=== PATIENT | male | born 1935 | race Asian ===

== ENCOUNTER 2017-09-01 15:27 | Emergency (ER) | payer BC ==
[2017-09-01 15:40] VITALS: BP 178/88
--- NOTE | 2017-09-01 19:03 | UC ---
Thuan Mc Elizabeth, scribed for George Slater MD on 09/01/17 at 1603 . Complaint Male HPI - HPI Summary HPI Summary: This patient is an 82 year old M presenting to [facility] with a chief complaint of hematuria since this morning. The patient rates the pain 0/10 in severity. Symptoms aggravated by nothing. Symptoms alleviated by nothing. Patient denies any increased frequency, urgency, dysuria, fever, chills, back pain, abd pain, and pelvic pain. The patient has a hx of BPH and takes Flomax. The patient denies taking any blood thinners or ASA - History of Current Complaint Chief Complaint: UCGU Stated Complaint: BLOOD IN URINE Time Seen by Provider: 09/01/17 15:39 Hx Obtained From: Patient Onset/Duration: Sudden Onset, Lasting Hours - since this morning, Still Present Timing: Intermittent Severity Initially: Mild Severity Currently: Mild Pain Intensity: 0 Pain Scale Used: 0-10 Numeric Aggravating Factor(s): Nothing Alleviating Factor(s): Nothing Associated Signs And Symptoms: Positive: Hematuria. Negative: Back Pain, Fever , Dysuria - Allergies/Home Medications Allergies/Adverse Reactions: Allergies Allergy/AdvReac Type Severity Reaction Status Date / Time SEASONAL HAYFEVER Allergy ITCHY Uncoded 09/01/17 15:35 WATERY EYES PMH/Surg Hx/FS Hx/Imm Hx Other GI/ History: BPH - Surgical History Surgical History: Yes Surgery Procedure, Year, and Place: 1955 EXCISION OF RIB DUE TO TB, [place] 1989' HEMORRHOIDECTOMY, [facility]- GALLBLADDER REMOVED- [facility]. R inguinal hernia repair 2014 - Family History Known Family History: Positive: Other - liver CA - Social History Alcohol Use: None Alcohol Amount: 1 PER WEEK Substance Use Type: None Smoking Status (MU): Former Smoker Type: Cigarettes Amount Used/How Often: LESS THAN 1 PPD Have You Smoked in the Last Year: No When Did the Patient Quit Smoking/Using Tobacco: 1960 Review of Systems Constitutional: Negative - NEGATIVE FEVER, NEGATIVE CHILLS Gastrointestinal: Negative - NEGATIVE ABD PAIN Genitourinary: Negative - NEGATIVE FREQUENCY, NEGATIVE URGENCY, NEGATIVE DYSURIA , Hematuria Musculoskeletal: Negative - NEGATIVE BACK PAIN, NEGATIVE PELVIC PAIN All Other Systems Reviewed And Are Negative: Yes Physical Exam - Summary Physical Exam Summary: VITAL SIGNS: Reviewed. GENERAL: Patient is a well-developed and nourished MALE who is lying comfortable in the stretcher. Patient is not in any acute respiratory distress. HEAD AND FACE: Normocephalic EYES: PERRLA, EOMI x 2. EARS: Hearing grossly intact. MOUTH: Oropharynx within normal limits. NECK: Supple, trachea is midline, no adenopathy, no JVD, no carotid bruit. CHEST: Symmetric, no tenderness at palpation LUNGS: Clear to auscultation bilaterally. No wheezing or crackles. CVS: Regular rate and rhythm, S1 and S2 present, no murmurs or gallops appreciated. ABDOMEN: Soft, non-tender. Bowel sounds are normal. No abdominal abnormal pulsations. EXTREMITIES: Full ROM in all major joints, no edema, no cyanosis or clubbing. NEURO: Alert and oriented x 3. No acute neurological deficits. Speech is normal and follows commands. SKIN: Dry and warm Triage Information Reviewed: Yes Vital Signs: Initial Vital Signs Temp 99.2 F 09/01/17 15:36 Pulse 56 09/01/17 15:36 Resp 18 09/01/17 15:36 BP 178/88 09/01/17 15:36 Pulse Ox 98 09/01/17 15:36 Vital Signs Reviewed: Yes Complaint Male Course/Dx - Course Course Of Treatment: Patient is an 82-year-old male who presents to the urgent With painless hematuria. Urinalysis is negative for UTI. Patient will be transferred to the emergency department for further workup and management. Patient declined to transportation via ambulance. He reports that he is going to drink himself to the emergency department. He is hemodynamically stable and alert and oriented 3. - Differential Dx/Diagnosis Provider Diagnoses: Painless hematuria Discharge - Sign-Out/Discharge Documenting (check all that apply): Discharge/Admit/Transfer - Discharge Plan Condition: Stable Disposition: HOME Patient Education Materials: Hematuria (ED) Referrals: No Primary Care Phys,NOPCP [Primary Care Provider] - Additional Instructions: Patient will be transferred to the emergency department for further assessment. Patient declined ambulance transfer. - Billing Disposition and Condition Condition: STABLE Disposition: HOME The documentation as recorded by the Thuan andrade Elizabeth accurately reflects the service I personally performed and the decisions made by , George Slater MD.
--- NOTE | 2017-09-02 16:03 | UC ---
- Progress Note Progress Note: Pt urine culture prelim returned with >100,000 Enterococcus Faecalis. Does not appear he was placed on anbx at or at the ED. U/s revealed bladder mass and advised to f/u with Urology. Please call pt and have him start Bactrim DS BID for 5 days. KEEP F/U WITH UROLOGY. --- We will call him if we need to change his antibiotic after final culture results. Discharge - Sign-Out/Discharge Documenting (check all that apply): Post-Discharge Follow Up - Discharge Plan Condition: Stable Disposition: HOME Prescriptions: Sulfamethox/Trimethoprim DS* [Bactrim DS 800/160 TAB*] 1 tab PO BID #10 tab Patient Education Materials: Hematuria (ED) Referrals: No Primary Care Phys,NOPCP [Primary Care Provider] - Additional Instructions: Patient will be transferred to the emergency department for further assessment. Patient declined ambulance transfer. - Billing Disposition and Condition Condition: STABLE Disposition: HOME
--- NOTE | 2017-09-03 16:26 | UC ---
- Progress Note Progress Note: call patient assure he is improving, if not please go to ED also assure he has a follow up appointment with urology Discharge - Sign-Out/Discharge Documenting (check all that apply): Post-Discharge Follow Up - Discharge Plan Condition: Stable Disposition: HOME Prescriptions: Sulfamethox/Trimethoprim DS* [Bactrim DS 800/160 TAB*] 1 tab PO BID #10 tab Patient Education Materials: Hematuria (ED) Referrals: No Primary Care Phys,NOPCP [Primary Care Provider] - Additional Instructions: Patient will be transferred to the emergency department for further assessment. Patient declined ambulance transfer. - Billing Disposition and Condition Condition: STABLE Disposition: HOME
== END 2017-09-01 16:05 | disposition home or self-care (01) ==
LOC: UCEAST 15:27
DX: R31.9 Hematuria, unspecified (principal); N40.0 Benign prostatic hyperplasia without lower urinary tract symptoms; Z87.891 Personal history of nicotine dependence; Z80.0 Family history of malignant neoplasm of digestive organs
CPT/HCPCS: 81003; 87077; 87086; 87186; 99202; G0463

== ENCOUNTER 2017-09-01 16:37 | Emergency (ER) | payer BC ==
[2017-09-01 18:49] LABS: Urine Appearance Cloudy; Urine Color Red; Urine Specific Gravity 1.009 (1.010-1.030)
--- NOTE | 2017-09-01 18:54 | ED ---
GI/ HPI - HPI Summary HPI Summary: Complains of persistent blood in urine starting today. Patient states blood is throughout urine flow. Sent from urgent care to ED for further evaluation. Denies any pain, fever, CP, SOB, weakness, fatigue, N/V, abdominal pain, back pain, penile discharge. History of mild bleeding in urine 2 months ago which went away with antibiotics. Patient also denies pain at that time. Medical history is enlarged prostate, seasonal allergies. - History of Current Complaint Chief Complaint: EDUrogenitalProblems Time Seen by Provider: 09/01/17 18:35 Stated Complaint: BLOOD IN URINE Hx Obtained From: Patient Pain Intensity: 0 - Allergy/Home Medications Allergies/Adverse Reactions: Allergies Allergy/AdvReac Type Severity Reaction Status Date / Time SEASONAL HAYFEVER Allergy ITCHY Uncoded 09/01/17 15:35 WATERY EYES Home Medications: Home Medications Finasteride [Proscar] 5 mg PO DAILY 09/01/17 [History Confirmed 09/01/17] PMH/Surg Hx/FS Hx/Imm Hx Cardiovascular History: Denies: Other Cardiovascular Problems/Disorders Respiratory History: Reports: Other Respiratory Problems/Disorders - 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 [place]/2014- GALLBLADDER REMOVED- [facility] [place]. R inguinal hernia repair 2014 Hx Anesthesia Reactions: No Infectious Disease History: No Infectious Disease History: Reports: Hx Hepatitis - HX OF HEPATITIS C Denies: Traveled Outside the [place] in Last 30 Days - Social History Alcohol Use: Rare Alcohol Amount: 1 PER WEEK Substance Use Type: Reports: None Smoking Status (MU): Former Smoker Type: Cigarettes Amount Used/How Often: LESS THAN 1 PPD Have You Smoked in the Last Year: No Review of Systems Constitutional: Negative Eyes: Negative ENT: Negative Cardiovascular: Negative Respiratory: Negative Gastrointestinal: Negative Positive: hematuria Musculoskeletal: Negative Skin: Negative Neurological: Negative Psychological: Normal All Other Systems Reviewed And Are Negative: Yes Physical Exam Triage Information Reviewed: Yes Vital Signs On Initial Exam: Initial Vitals Temp Pulse Resp BP Pulse Ox 98.4 F 52 18 174/89 96 09/01/17 17:05 09/01/17 17:05 09/01/17 17:05 09/01/17 17:05 09/01/17 17:05 Vital Signs Reviewed: Yes Appearance: Positive: Well-Appearing Skin: Positive: Warm Head/Face: Positive: Normal Head/Face Inspection Eyes: Positive: Normal Neck: Positive: Supple Respiratory/Lung Sounds: Positive: Clear to Auscultation Cardiovascular: Positive: Normal Abdomen Description: Positive: Nontender Musculoskeletal: Positive: Normal Neurological: Positive: Normal Psychiatric: Positive: Normal AVPU Assessment: Alert - [place] Coma Scale Best Eye Response: 4 - Spontaneous Best Motor Response: 6 - Obeys Commands Best Verbal Response: 5 - Oriented Coma Scale Total: 15 Diagnostics - Vital Signs Vital Signs Temp Pulse Resp BP Pulse Ox 09/01/17 17:05 98.4 F 52 18 174/89 96 - Laboratory Result Diagrams: 09/01/17 18:50 09/01/17 18:50 Lab Statement: Any lab studies that have been ordered have been reviewed, and results considered in the medical decision making process. - Ultrasound No standard instances Ultrasound Interpretation: Positive (See Comments) - Lobular mass extending from the left of the midline posterior wall of the urinary bladder. Direct visualization and tissue sampling is advised. Ultrasound Interpretation Completed By: Radiologist BRUNA Course/Dx - Course Course Of Treatment: Complains of persistent blood in urine starting today. Patient states blood is throughout urine flow. Sent from urgent care to ED for further evaluation. Denies any pain, fever, CP, SOB, weakness, fatigue, N/V, abdominal pain, back pain, penile discharge. History of mild bleeding in urine 2 months ago which went away with antibiotics. Patient also denies pain at that time. Medical history is enlarged prostate, seasonal allergies. Elevated blood pressure with no history of hypertension. Asymptomatic. Follow- up with primary care. Elevated liver enzymes, patient states he has history of hep C. Hemoglobin within normal limits. Ultrasound positive for lobular mass extending from the left of the midline posterior wall of the urinary bladder. Direct visualization and tissue sampling is advised. Recommended follow-up with urology. - Diagnoses Provider Diagnoses: Hematuria Discharge - Sign-Out/Discharge Documenting (check all that apply): Discharge/Admit/Transfer - Discharge Plan Condition: Stable Disposition: HOME Patient Education Materials: Hematuria (ED) Referrals: No Primary Care Phys,NOPCP [Primary Care Provider] - Dion Galdamez MD [Medical Doctor] - Additional Instructions: Follow-up with urology Dr. Galdamez for further evaluation of mass found on bladder. Return to the ED for any new or worsening symptoms - Billing Disposition and Condition Condition: STABLE Disposition: HOME
[2017-09-01 19:00] LABS: ABS Basophils 0 10^3/ul (0-0.2); ABS Eosinophils 0 10^3/ul (0-0.6); ABS Lymphocytes 1.4 10^3/ul (1.0-4.8); ABS Monocytes 0.6 10^3/ul (0-0.8); ABS Neutrophils 3.5 10^3/ul (1.5-7.7); ABS Nucleated RBC 0 10^3/ul; Eosinophil % 0.7 % (0-6); Hematocrit 44 % (42-52); Lymphocyte % 24.7 % (25-47); Mean Corpuscular HGB Conc 34 g/dl (31-36); Mean Corpuscular Hemoglobin 34 pg (27-31); Mean Corpuscular Volume 100 fL (80-94); Mean Platelet Volume 8.3 um3 (7.4-10.4); Nucleated Red Blood Cells % 0.1; Platelet Count 110 10^3/ul (150-450); Red Blood Count 4.38 10^6/ul (4.0-5.4); Red Cell Distribution Width 13 % (10.5-15); White Blood Count 5.5 10^3/ul (3.5-10.8)
[2017-09-01 19:17] LABS: EGFR Non-African American 102.6 (>60)
--- NOTE | 2017-09-01 20:48 | RAD ---
INDICATION: Hematuria COMPARISON: None TECHNIQUE: Real-time ultrasound examination of the bilateral kidneys and urinary bladder including grayscale and Doppler color flow analysis. FINDINGS: Bilaterally the kidneys are normal in size and echogenicity. There are no hypervascular renal masses. There are no renal calculi or hydronephrosis identified. Extending from the left posterior wall the urinary bladder is a minimally vascular echogenic lobular mass measuring 2.9 x 4.5 x 4.4 cm. The gardner of the urinary bladder otherwise smooth and homogenous measuring 3 mm in thickness. The pre and post urinary bladder volumes are 492 mL and 179 mL, respectively. Normal ureteral jets are identified bilaterally. The prostate measures 4.6 x 4.4 x 4.8 cm yielding an approximate volume of 50 mL. IMPRESSION: 1. Lobular mass extending from the left of midline posterior wall of the urinary bladder. Direct visualization and tissue sampling is advised. 2. Post void residual volume measures approximately 36%.
[2017-09-01 21:22] VITALS: BP 176/103
== END 2017-09-01 21:21 | disposition home or self-care (01) ==
LOC: ED 16:37
DX: N02.9 Recurrent and persistent hematuria with unspecified morphologic changes (principal); N32.9 Bladder disorder, unspecified; R74.8 Abnormal levels of other serum enzymes; R03.0 Elevated blood-pressure reading, without diagnosis of hypertension; N40.0 Benign prostatic hyperplasia without lower urinary tract symptoms; Z79.899 Other long term (current) drug therapy; Z87.891 Personal history of nicotine dependence
CPT/HCPCS: 36415; 76770; 80053; 81003; 83605; 85025; 86140; 99282

== ENCOUNTER 2017-09-08 06:10 | Day surgery (SDC) | payer BC ==
--- NOTE | 2017-09-05 21:27 | HP ---
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 Mr. 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 He had 1 episode of light gross painless hematuria about 2 months ago that was treated with a course of antibiotics with resolution. He presented to the emergency room on 09/01/17 with a 1-day history of total gross painless hematuria. There was no associated flank or abdominal pain and no changes in his voiding. He had mild degree of burning on urination. He did not have any fever or chills. In the emergency room, he had a renal and bladder ultrasound which showed a lobular mass in the left base of the bladder. The kidneys looked normal. His serum Creatinine normal. His urine culture grew enterococcus and he was placed on a course of Bactrim. He was then evaluated in my office. Cystoscopy showed a large obstructing prostate with a prominent median lobe. Examination of the bladder showed a 4 cm papillary lesion arising from the left base of the bladder consistent with a bladder tumor. The left ureteral orifice could not be well visualized. The rest of the bladder wall looked normal except for diffuse trabeculations. No other bladder lesions were seen. The patient then had a CT urogram which showed no hydronephrosis and no abnormal filling defects in the ureters or the collecting systems. The prostate was enlarged and the papillary lesion was seen in the left base of the bladder consistent with the finding on the cystoscopy and the bladder ultrasound. There was no evidence of any metastatic disease and no evidence of extension of the tumor outside the bladder wall. PAST MEDICAL HISTORY AND SYSTEM REVIEW: He is in very good health for his age. He is hypertensive, maintained on Norvasc 5 mg daily. He has environmental allergies, on Mary as needed. He has history of hepatitis C diagnosed in 2015 on liver biopsy done at the same as his cholecystectomy. He was seen by GI in [facility], placed on Interferon , however he could nor complete the treatment course. His recent lab work showed moderate elevation of his liver enzymes. He has no anemia. He has no bruising. No history of jaundice. He has very good exercise tolerance, and is physically fit and active. PAST SURGICAL HISTORY: Three years ago, he had an uncomplicated cholecystectomy by Dr. Sellers, followed by hernia repair a few months later. Both surgeries well tolerated. ALLERGIES: He denies any allergies to any medications. SOCIAL HISTORY: He is a nonsmoker. PHYSICAL EXAMINATION GENERAL: He is a pleasant, healthy, and fit-looking male who looks good for his age. VITAL SIGNS: Blood pressure 140/80, pulse of 60, oxygen saturation 99% on room air. LUNGS: Clear. HEART: Regular and rhythmic. No murmurs. ABDOMEN: Soft. No masses, no tenderness and no CVA tenderness. EXTERNAL GENITALIA: He is circumcised. No penile lesions. Normal testes and no inguinal hernias. RECTAL EXAM: Shows a moderately enlarged, but non-suspicious prostate. EXTREMITIES: Show no edema. IMPRESSION: 1. Recurrent episodes of gross hematuria secondary to a 3 to 4 cm tumor arising from the left base of the bladder with normal upper tracts on CT urogram. 2. Prostate enlargement and bladder outlet obstruction, on treatment. 3. Hypertension, well controlled on treatment. 4. Hepatitis C. PLAN: For cystoscopy and transurethral resection of the bladder tumor. If the tumor is involving the left ureteral orifice, he will need placement of a left ureteral stent. I discussed the above plans in detail with the patient. Some of the potential complications including hematuria, postoperative urinary retention were discussed. He will most likely require additional treatment depending upon the pathology of the resected tumor. All his questions were answered. I also discussed the result of the work-up and the plans with his daughter, Lori Nieves M.D., well treatment offsider in [place]. [id number]/[facility] #: [id number] [facility] CENTERBoy
[~2017-09-08 06:10] MED LIST: Buffered Lidocaine 0.9% SYRIN* 5 ML/SYR SYRINGE INTRADERM ONE
[2017-09-08] MEDS ORDERED: cefTRIAXone(*) 1 GM ADVAN/BAG ONE (06:17)
[2017-09-08] MEDS ORDERED: Iohexol 180 (CONTRAST) 10 ML SDV IV ONE (07:02)
[2017-09-08] MEDS ORDERED: fentaNYL* 50 MCG/ML 2 ML VIAL (100 MCG VIAL) ONE ×2 (07:14→10:28)
[2017-09-08] MEDS ORDERED: Propofol* 10 MG/ML 20 ML BTL IV PUSH ONE (07:14)
[2017-09-08] MEDS ORDERED: Midazolam* 1 MG/ML 2 ML VIAL (2 MG) ONE (07:15)
[2017-09-08] MEDS ORDERED: Fluorescein 10% INJ* 100 MG/ML AMP ONE (07:56)
[2017-09-08] MEDS ORDERED: fentaNYL* 50 MCG/ML 2 ML VIAL (100 MCG VIAL) IV PRN (08:25)
[2017-09-08] MEDS ORDERED: Ibuprofen TAB* 400 MG PO PRN (08:25)
[2017-09-08] MEDS ORDERED: Ondansetron ODT TAB* 4 MG PO PRN (08:25)
[2017-09-08] MEDS ORDERED: oxyCODONE TAB* 5 MG TAB PO PRN (08:25)
[2017-09-08] MEDS ORDERED: Ketorolac INJ* 30 MG/ML 1 ML VIAL IV PRN (08:25)
[2017-09-08] MEDS ORDERED: Acetaminophen TAB* 325 MG PO PRN (08:25)
[2017-09-08] MEDS ORDERED: Naloxone* 0.4 MG/ML 1 ML VIAL IV PRN (08:25)
[2017-09-08] MEDS ORDERED: Ondansetron INJ* 2 MG/ML VIAL IV PRN (08:25)
[2017-09-08] MEDS ORDERED: mitoMYcin PWD* 40 MG in Sterile Water for Inj* 40 ML IRRIGATION ONE (09:30)
[2017-09-08] MEDS ORDERED: Oxybutynin TAB* 5 MG ONE (10:26)
[2017-09-08 12:07] VITALS: BP 125/71
--- NOTE | 2017-09-09 04:26 | OP ---
OPERATIVE REPORT: DATE OF OPERATION: 09/08/17 DATE OF : 33 SURGEON: Dion Galdamez MD ANESTHESIOLOGIST: Dr. Iván Travis. ANESTHESIA: General. PRE-OP DIAGNOSIS: Bladder tumor (left base). POST-OP DIAGNOSIS: Bladder tumor (left base). OPERATIVE PROCEDURE: 1. Cystoscopy. 2. Transurethral resection of bladder tumor of left base, 4 cm. INDICATIONS: Mr. Nieves is an 82-year-old male who presented to my office earlier this week with new onset of recurrent episodes of gross painless hematuria. Cystoscopy showed a large prostate and 4 to 5 cm papillary tumor arising from the left base of the bladder. CT urogram showed a mass in the left base of the bladder, and showed normal kidneys, collecting systems and ureters without any hydronephrosis or abnormal filling defects. Because of the above history and finding, the patient is brought in to the OR for the above procedure. PATHOLOGY AT CYSTOSCOPY: The penile and bulbar urethrae looked normal. The prostatic urethra measured about 3 cm in length. There was significant degree of obstruction by trilobar hyperplasia of the prostate with a prominent median lobe. Examination of the bladder showed a 4 to 5 cm papillary lesion arising from the left base of the bladder. The base of the tumor was located between the left trigone and the bladder neck. It did not involve the left ureteral orifice. 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 It did not look grossly invasive into the bladder wall muscle. Examination of the rest of the bladder was normal. There was no other bladder lesions seen. No lesions to suspect carcinoma in situ. Moderate diffuse trabeculations were noted. No calculi or diverticula were noted. There was clear efflux from both ureteral orifices. DESCRIPTION OF PROCEDURE: After successful general anesthesia, the patient was placed in the lithotomy position and was prepped and draped for a cystoscopy. Cystoscopy was performed. The bladder was carefully inspected and the above findings were noted. The resectoscope was then introduced inside the bladder. Water was used for irrigation and the inflow and outflow were adjusted to avoid overdistension of the bladder. Because the left ureteral orifice could not be well visualized as it was obscured by the tumor, the patient was given 0.5 cc of fluorescein IV. That allowed easier identifications of both ureteral orifices. The tumor was then resected all the way down to its base including muscle. The left ureteral orifice was well visualized and was free of tumor and was preserved. At the completion of the resection, there were no residual tumors noted. The bed of the tumor was resected down to muscle. There was no sign of bladder perforation. Extensive fulguration was then carried to control all the oozing from the resection. The bladder was then irrigated and all the resected tumor was evacuated and sent for pathology. A final inspection showed intact ureteral orifices, good hemostasis, no residual tumor and no bladder perforation. The resectoscope was then removed and a size 20-Urdu Manzanares catheter was passed inside the bladder and the balloon inflated with 15 cc of water. Irrigation yielded pinkish returns. The patient tolerated the procedure well and left the operating room in good condition. The blood loss was estimated at about 25 to 50 cc. The specimen was bladder tumor, left base. The plan is to give the patient one dose of intravesical mitomycin C in the recovery room, and then to discharge him home on Manzanares catheter drainage to avoid postoperative retention from the enlarged prostate. Additional treatment will be decided depending on the pathology. [id number]/[facility] #: [id number] [facility] SURGERYBoy
== END 2017-09-08 12:35 | disposition home or self-care (01) ==
LOC: OR 06:10
PROVIDERS: ATTEND Urology
DX: C67.9 Malignant neoplasm of bladder, unspecified (principal); R31.0 Gross hematuria; N40.1 Benign prostatic hyperplasia with lower urinary tract symptoms; N13.8 Other obstructive and reflux uropathy; I10 Essential (primary) hypertension; B19.20 Unspecified viral hepatitis C without hepatic coma; Z86.11 Personal history of tuberculosis
CPT/HCPCS: 88305; A9270-GY; J0696; J2250; J2704; J3010; J9280

== ENCOUNTER → 2018-07-20 08:08 | Day surgery (SDC) | payer BC, OTHER ==
--- NOTE | 2018-07-12 14:24 | HP ---
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 Mr. Nieves developed presented last year with recurrent episodes of gross painless hematuria, and was diagnosed with a 4-cm tumor arising from the left base of the bladder. CT urogram showed normal upper tracts. He then underwent transurethral resection of the bladder tumor. 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 He was then treated with a 6 weeks' course of intravesical BCG. He could not tolerate the maintenance BCG treatments due to severe bladder irritative symptoms, and no additional BCG treatments were given. He had his follow up surveillance cystoscopy about one month prior to this admission. There was irregular suspicious flat lesion occupying the left trigone and the left ureteral orifice. The lesion had the appearance of either carcinoma in situ or flat transitional cell carcinoma. No other bladder lesions were seen. His urine cytologies were negative. Because of that finding, the patient is admitted for resection of the above lesions and because of proximity and involvement of the left ureteral orifice, for placement of left ureteral stent. PAST MEDICAL HISTORY AND SYSTEM REVIEW: He is in excellent health. He is hypertensive, maintained on Norvasc 5 mg daily, which is only his medication. He has environmental allergies, on Mary as needed. In 2014, he had a cholecystectomy and at that time, he had a liver biopsy, which showed active hepatitis C. The patient was treated and received a course of interferon, but he could not complete the treatment. He continues to have mild elevation of his liver enzymes, but he has no anemia, no bruising, and no history of jaundice or bleeding tendency. He has very good exercise tolerance. He denies any cardiac or pulmonary diseases or symptoms. He is physically fit and active. PAST SURGICAL HISTORY: Relevant for an uncomplicated cholecystectomy by Dr. Sellers in 2014, followed by inguinal hernia repair a few months later. He did not have any complications from either surgery. ALLERGIES: He denies any allergies to medications. FAMILY HISTORY: Negative. SOCIAL HISTORY: He is a nonsmoker and no alcohol or recreational drugs. PHYSICAL EXAMINATION GENERAL: He is a pleasant, healthy, and fit looking male, who looks good for his age. VITAL SIGNS: Blood pressure 130/80, pulse of 64, oxygen saturation 98% on room air. LUNGS: Clear. HEART: Regular and rhythmic. No murmurs. ABDOMEN: Soft. No masses. No tenderness and no CVA tenderness. EXTERNAL GENITALIA: Normal. RECTAL: Exam last year had shown an enlarged, but non-suspicious prostate. IMPRESSION: 1. 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 2. Suspicious appearing mucosa of the left base of the bladder on recent surveillance cystoscopy. 3. Hypertension, well controlled on Norvasc. 4. History of hepatitis C. PLAN: Plan is for transurethral resection of the bladder lesion with placement of left ureteral stent. I discussed the above plans in detail with the patient. All his questions were answered. [id number]/CPS #: [id number] JASMEET
[~2018-07-20 08:08] MED LIST changes: +Acetaminophen TAB* 325 MG PO PRN; -Buffered Lidocaine 0.9% SYRIN* 5 ML/SYR SYRINGE INTRADERM ONE; +Buffered Lidocaine 1% SYRIN* 1 ML/SYRINGE INTRADERM ONE; +Dexamethasone IV* 4 MG/ML 1 ML (4 MG) IV SLOW PU ONE; +Dexamethasone IV* 4 MG/ML 1 ML (4 MG) ONE; +DiMENhydriNATE IV* 50 MG/ML VIAL IV PUSH PRN; +Famotidine TAB* 20 MG ONE; +Famotidine TAB* 20 MG PO ONE; +Iohexol 180 (CONTRAST) 10 ML SDV IV ONE; +Lactated Ringers 1000 ML Bag* 1,000 ML IV SCH; +Lidocaine 2% PF * 5 ML VIAL ONE; +Naloxone* 0.4 MG/ML 1 ML VIAL IV PRN; +Ondansetron INJ* 2 MG/ML VIAL ONE; +Oxybutynin TAB* 5 MG ONE; +Propofol* 10 MG/ML 20 ML BTL ONE; +Rocuronium* 10 MG/ML VIAL ONE; +Sugammadex * 200 MG/2 ML VIAL IV PUSH ONE; +cefTRIAXone(*) 1 GM ADVAN/BAG ONE; +cefTRIAXone(*) 1 GM in NS 0.9% 50 ML* 50 ML IVPB ONE; +fentaNYL* 50 MCG/ML 2 ML VIAL (100 MCG VIAL) IV PRN; +fentaNYL* 50 MCG/ML 2 ML VIAL (100 MCG VIAL) ONE; +oxyCODONE/Acetamin 5/325 MG* TAB PO PRN
[2018-07-20 14:25] VITALS: BP 157/94
--- NOTE | 2018-07-20 22:25 | OP ---
OPERATIVE REPORT: DATE OF OPERATION: 07/20/18 DATE OF : 33 SURGEON: Dion Galdamez MD ANESTHESIOLOGIST: Dr. Hernandez. ANESTHESIA: General. PRE-OP DIAGNOSES: 1. 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 2. Rule out recurrent bladder tumor. POST-OP DIAGNOSES: Pending pathology. OPERATIVE PROCEDURE: 1. Cystoscopy. 2. Left retrograde pyelography. 3. Insertion of left ureteral stent (7-Belarusian). 4. Transurethral resection of suspicious bladder lesions (mid and left trigone , 3 cm) . INDICATIONS: Mr. 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 At that time, his CT urogram showed no upper tract disease and no evidence of extravesical disease. He underwent a transurethral resection of the tumor and the pathology showed high- grade transitional cell carcinoma without muscle invasion. The patient was treated with 6 weeks' course of intravesical BCG. He could not tolerate the maintenance dose because of severe irritative bladder symptoms. Recent cystoscopy showed suspicious lesions occupying the mid and left trigone surrounding the left ureteral orifice. The patient is admitted for resection of the above lesions. Pathology: at cystoscopy, the penile and bulbar urethrae looked normal. The prostatic urethra measured 3 cm in length and there was significant degree of obstruction by trilobar hyperplasia of the prostate. Examination of the bladder showed irregular mucosa with small fronds suspicious for flat transitional cell carcinoma occupying the mid and left trigone and surrounding the left ureteral orifice. No other suspicious lesions were seen. The right ureteral orifice was intact and not involved with any lesions. The rest of the bladder wall looked normal. Moderate degree of trabeculations was seen. No calculi or diverticula were noted. Left retrograde pyelography showed mild dilatation of the ureter, no hydronephrosis, and no abnormal filling defects in the ureter or collecting system. DESCRIPTION OF PROCEDURE: After successful general anesthesia, patient was placed in the lithotomy position and was prepped and draped for a cystoscopy. Cystoscopy was performed. The bladder was carefully inspected and the above findings were noted. A flexible-tip guidewire was then introduced into the left orifice and a size 5 - Belarusian open-ended catheter was fed on top of the guidewire and positioned in the distal ureter. Retrograde pyelography was then performed demonstrating the whole ureter, which looked mildly dilated and tortuous, but there were no abnormal filling defects in the ureter or the collecting system. No hydronephrosis was noted. The flexible-tip guidewire was then positioned in the area of the renal pelvis. A size 7-Belarusian stent was then placed with the proximal end coiling in the renal pelvis and the distal end coiling inside the bladder. The cystoscope was then removed and the resectoscope was introduced inside the bladder. Water was used for irrigation, and the inflow and outflow were adjusted to avoid overdistention of the bladder. The bladder lesions in the base of the bladder were resected starting just medial to the right ureteral orifice and extending all the way lateral to the left ureteral orifice. The resection was deep to muscle. The site of the resection was then thoroughly fulgurated with a coagulation current. The resected tissue was evacuated and sent for pathology. A final inspection showed very good hemostasis, no gross residual disease seen and no evidence of a bladder perforation noted. Final fluoroscopy showed the stent to be till in good position in the renal pelvis. The resectoscope was then removed and a size 18-Belarusian Manzanaers catheter was passed inside the bladder and the balloon inflated with 15 cc of water. The patient tolerated the procedure well and left the operating room in good condition. The blood loss was negligible. The specimen was lesions of mid and left trigone. [id number]/[facility] #: [id number] JASMEET
== END | disposition home or self-care (01) ==
LOC: OR 08:08
PROVIDERS: ATTEND Urology
DX: D49.4 Neoplasm of unspecified behavior of bladder (principal); I10 Essential (primary) hypertension; Z87.19 Personal history of other diseases of the digestive system; Z85.51 Personal history of malignant neoplasm of bladder
CPT/HCPCS: 74420; 88305; A9270-GY; C1876; J0696; J1100; J2405; J2704; J3010

== ENCOUNTER 2018-07-22 17:56 | Inpatient (IN) | payer BC ==
--- NOTE | 2018-07-22 18:34 | ED ---
GI/ HPI - HPI Summary HPI Summary: This patient is an 83 year old M presenting to [facility] and referred by Dr. Galdamez (urology) accompanied by with a chief complaint of penile pain that began later this morning. The patient rates the pain 10/10 in severity. Symptoms aggravated by urination. Symptoms alleviated by nothing. The patient reports inability to urinate since late this morning. Pt denies any fever, chills, erythema of eyes, sore throat, CP, SOB, cough, abdominal pain, N/V, dysuria, hematuria, myalgia, edema, rash, or dizziness. Patient states he had a bladder resection on 07/20/2018. - History of Current Complaint Chief Complaint: EDUrogenitalProblems Time Seen by Provider: 07/22/18 18:14 Stated Complaint: "POST OP CATHETER ISSUE PER PT" Hx Obtained From: Patient Onset/Duration: Started Hours Ago, Atraumatic, Still Present Timing: Constant Severity: Severe Current Severity: Severe Pain Intensity: 10 Additional Locations for Males: Penis Associated Signs and Symptoms: Positive: Other: - Positive inability to urinate since late this morning. Negative any fever, chills, erythema of eyes, sore throat, CP, SOB, cough, abdominal pain, N/V, dysuria, hematuria, myalgia, edema , rash, or dizziness. Aggravating Factor(s): Urination Alleviating Factor(s): Nothing - Allergy/Home Medications Allergies/Adverse Reactions: Allergies Allergy/AdvReac Type Severity Reaction Status Date / Time SEASONAL HAYFEVER Allergy Intermediate ITCHY Uncoded 07/20/18 08:59 WATERY EYES PMH/Surg Hx/FS Hx/Imm Hx Previously Healthy: No Cardiovascular History: Reports: Hx Hypertension - on meds Denies: Other Cardiovascular Problems/Disorders Respiratory History: Denies: Other Respiratory Problems/Disorders GI History: Reports: Hx Ulcer - 20 yrs ago Denies: Other GI Disorders History: Reports: Other Problems/Disorders - ENLARGE PROSTATE Sensory History: Reports: Hx Contacts or Glasses - GLASSES Denies: Hx Hearing Aid Opthamlomology History: Reports: Hx Contacts or Glasses - GLASSES - Cancer History Hx Chemotherapy: No - Surgical History Surgery Procedure, Year, and Place: 1955 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 1989 HEMORRHOIDECTOMY, [facility] [place]. 05/2014-. GALLBLADDER REMOVED- [facility] [place]. Right inguinal hernia repair 2014. 09/2017, bladder, [facility]. Bladder resection 07/20/2018 Hx Anesthesia Reactions: No Infectious Disease History: No Infectious Disease History: Reports: Hx Hepatitis - HX OF HEPATITIS C Denies: Traveled Outside the [place] in Last 30 Days - Family History Known Family History: Positive: Other - Negative anesthesia reaction - Social History Occupation: Employed Full-time Lives: With Family Alcohol Use: Weekly Alcohol Amount: 2 per week Hx Substance Use: No Substance Use Type: Reports: None Hx Tobacco Use: Yes Smoking Status (MU): Former Smoker Type: Cigarettes Amount Used/How Often: as a teen only Have You Smoked in the Last Year: No Review of Systems Negative: Fever, Chills Negative: Erythema Negative: Sore Throat Negative: Chest Pain Negative: Shortness Of Breath, Cough Negative: Abdominal Pain, Vomiting, Nausea Genitourinary: Other - Positive penile pain and inability to urinate Negative: dysuria, hematuria Negative: Myalgia, Edema Negative: Rash Neurological: Other - Negative dizziness All Other Systems Reviewed And Are Negative: Yes Physical Exam - Summary Physical Exam Summary: Constitutional: Well-developed, Well-nourished, Alert. (-) Distressed Skin: Warm, Dry HENT: Normocephalic; Atraumatic Eyes: Conjunctiva normal Neck: Musculoskeletal ROM normal neck. (-) JVD, (-) Stridor, (-) Tracheal deviation Cardio: Rhythm regular, rate normal, Heart sounds normal; Intact distal pulses; The pedal pulses are 2+ and symmetric. Radial pulses are 2+ and symmetric. (-) Murmur Pulmonary/Chest wall: Effort normal. (-) Respiratory distress, (-) Wheezes, (-) Rales Abd: Soft, (-) tenderness, (-) Distension, (-) Guarding, (-) Rebound Genital Exam: Distended bladder, no blood at external meatus, appears to be in severe pain Musculoskeletal: (-) Edema Lymph: (-) Cervical adenopathy Neuro: Alert, Oriented x3 Psych: Mood and affect Normal Triage Information Reviewed: Yes Vital Signs On Initial Exam: Initial Vitals Temp Pulse Resp BP Pulse Ox 98.7 F 91 24 197/133 97 07/22/18 17:58 07/22/18 17:58 07/22/18 17:58 07/22/18 17:58 07/22/18 17:58 Vital Signs Reviewed: Yes Diagnostics - Vital Signs Vital Signs Temp Pulse Resp BP Pulse Ox 07/22/18 17:58 98.7 F 91 24 197/133 97 - Laboratory Result Diagrams: 07/22/18 19:30 07/22/18 19:30 Lab Statement: Any lab studies that have been ordered have been reviewed, and results considered in the medical decision making process. Re-Evaluation - Re-Evaluation First Eval Re-Evaluation Time: 19:09 Change: Unchanged Comment: The urine still contains bright red blood and the patient is still having discomfort around the catheter. GIGU Course/Dx - Course Course Of Treatment: This patient is an 83 year old M presenting to [facility] and referred by Dr. Galdamez (urology) accompanied by with a chief complaint of penile pain that began later this morning. Physical Exam Findings: Distended bladder, no blood at external meatus, appears to be in severe pain. Bloodwork obtained. In the ED course the patient was given morphine, fluids, and Zofran. Consult with Dr. Galdamez (urology) at 1934. He agreed to come see the patient in the emergency department. Consult with Dr. Galdamez (urology) at 2022. He agrees with the plan for medical admission for the patient. Consult with Dr. Romeo (hospitalist) at 2049. He agrees to admit the patient for further evaluation. The patient is agreeable with this plan. - Diagnoses Provider Diagnoses: Obstruction of catheter, Dilutional hyponatremia, Postoperative haemorrhage - Physician Notifications Discussed Care Of Patient With: Dion Galdamez Time Discussed With Above Provider: 19:38 Instructed by Provider To: Other - Consult at [address] Galdamez (urologist ) who agreed to come and see the pt in the ED. Consult with Dr. Galdamez ( urology) at 2022. He agrees with the plan for medical admission for the patient. Consult with Dr. Romeo (hospitalist) at 2049. He agrees to admit the patient for further evaluation. Discharge - Sign-Out/Discharge Documenting (check all that apply): Patient Departure - Admit to [facility] [place] Patient Received Moderate/Deep Sedation with Procedure: No - Discharge Plan Condition: Stable Disposition: ADMITTED TO [facility] Referrals: No Primary Care Phys,NOPCP [Primary Care Provider] - - Attestation Statements Document Initiated by Scribe: Yes Documenting Scribe: Joyce Love Provider For Whom Scribe is Documenting (Include Credential): Dr. Aydin Thakur MD Scribe Attestation: I, Joyce Love, scribed for Dr. Aydin Thakur MD on 07/22/18 at 2058. Status of Scribe Document: Ready
[2018-07-22] MEDS ORDERED: Morphine 4 MG/ML VIAL (1 ml) 4 MG/ML VIAL IV ONE (19:24)
[2018-07-22] MEDS ORDERED: NS 0.9% 1000 ML** 1,000 ML IV ONE (19:24)
[2018-07-22] MEDS ORDERED: Ondansetron INJ* 2 MG/ML VIAL IV ONE (19:24)
[2018-07-22 19:54] LABS: Hematocrit 38 % (36-46); Hemoglobin 13.5 g/dL (14.0-18.0); Mean Corpuscular HGB Conc 36 g/dL (31-36); Mean Corpuscular Hemoglobin 33 pg (27-31); Mean Corpuscular Volume 93 fL (80-94); Mean Platelet Volume 7.8 fL (7.4-10.4); Platelet Count 144 10^3/uL (150-450); Red Blood Count 4.09 10^6 /uL (4.18-5.48); Red Cell Distribution Width 13 % (10.5-15); White Blood Count 13.5 10^3/uL (3.5-10.8)
[2018-07-22 20:11] LABS: Albumin 4.2 g/dL (3.2-5.2); Albumin/Globulin Ratio 1.3 (1-3); BUN/Creatinine Ratio 18.9 (8-20); EGFR African American 76.4 (>60); EGFR Non-African American 63.1 (>60); Globulin 3.3 g/dL (2-4); Potassium 3.8 mmol/L (3.5-5.0); Total Bilirubin 1.2 mg/dL (0.2-1.0); Total Protein 7.5 g/dL (6.4-8.9)
[2018-07-22] MEDS ORDERED: Propofol* 10 MG/ML 20 ML BTL ONE (21:38)
[2018-07-22] MEDS ORDERED: fentaNYL* 50 MCG/ML 2 ML VIAL (100 MCG VIAL) ONE (21:38)
[2018-07-22] MEDS ORDERED: Lidocaine 2% PF * 5 ML VIAL ONE (21:38)
[2018-07-22] MEDS ORDERED: Sodium Chloride 3% HYPERTONIC* 500 ML IVPB ONE (21:45)
--- NOTE | 2018-07-22 22:08 | ADMNOTE ---
Subjective Date of Service: 07/22/18 Interval History: HISTORY AND PHYSICAL PCP; Osman Arauz [place] CC: hematuria HPI: Patient is an 83 year old man with history of hypertension, who had an elective transurethral resection of bladder tumor on 07/[address] Galdamez. He went home post-op, was feeling OK, tired and a bit confused, that was attributed to post-anesthesia. Today he had willie blood and clots in manzanares catheter, and then the catheter seemed to clog. He drank many glasses of water to try to clear blood from manzanares. When this was not successful, he was brought to the ER by Dr. Galdamez. In the ER he had manzanares changed, but bright red blood continues after several liters of manzanares irrigation. He also had pain in suprapubic region, was given morphine in ED. Dr. Galdamez is consulting in ED, and plans to take patient to OR tonight for cystoscopy and fulguration of bleeding lesion. 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 [employer], smoked briefly in teens, uses alcohol socially, no recreational drugs Past Medical History: Findings - Hypertension, BPH, h/o TB, h/o HepC; PSH: excision rib 1955 for TB, hemorrhoidectomy in , cholecystectomy 05/18, Rt inguinal hernia repair 2014 Review of Systems - Measurements Intake and Output: Intake and Output Last 24 Hours 07/20/18 07/21/18 07/22/18 07/23/18 06:59 06:59 06:59 06:59 Weight 59.874 kg - Review of Systems Constitutional Symptoms: Positive: Weakness, Fatigue Negative: Weight Gain, Fever HEENT: Positive: Normal Eyes: Positive: Normal Thyroid: Positive: Normal Pulmonary: Positive: Normal Cardiology: Positive: Normal Negative: Chest Pain, Shortness of Breath Gastroenterology: Positive: Abdominal Pain Negative: Nausea, Vomiting, Change in Bowel Habits Genital - Urinary: Positive: Hematuria Genitourinary - Male: Positive: Prostatism Musculoskeletal: Negative: Joint Pain Endocrinology: Positive: Normal Hematologic/Lymphatic: Negative: Anemia, Use of Anticoagulant, Use of Antiplatelet Drugs Neurology: Positive: Unexplained Weakness Negative: Headache, Change in Vision, Dizziness, Change in Speech, Change in Walking Psychiatry: Positive: Normal Allergic/Immunologic: Negative: Hx Anaphylaxis Objective Active Medications: Home Meds: Amlodipine Besylate (Norvasc Tab*) 5 mg PO QPM JENN Finasteride (Proscar Tab*) 5 mg PO QPM JENN Tamsulosin HCl (Flomax Cap*) 0.4 mg PO QPM JENN HCTZ 12.5 mg PO QAM Vital Signs - 8 hr 07/22/18 07/22/18 07/22/18 17:58 19:25 21:47 Temperature 37.1 C 36.8 C Pulse Rate 91 82 Respiratory 24 22 16 Rate Blood Pressure 197/133 145/87 (mmHg) O2 Sat by Pulse 97 97 Oximetry Oxygen Devices in Use Now: None Appearance: alert, somewhat slow to answer questions Eyes: No Scleral Icterus Ears/Nose/Mouth/Throat: NL Teeth, Lips, Gums Neck: NL Appearance and Movements; NL JVP Respiratory: Symmetrical Chest Expansion and Respiratory Effort, Clear to Auscultation Cardiovascular: NL Sounds; No Murmurs; No JVD Abdominal: NL Sounds; No Tenderness; No Distention, No Hepatosplenomegaly Lymphatic: No Cervical Adenopathy, No Axillary Adenopathy Extremities: No Edema Skin: No Rash or Ulcers Neurological: Alert and Oriented x 3 Lines/Tubes/Other Access: Clean, Dry and Intact Manzanares - frankly bloody fluid, Clean, Dry and Intact Peripheral IV Nutrition: - - NPO for surgery Result Diagrams: 07/22/18 19:30 07/22/18 19:30 Additional Lab and Data: Laboratory Tests 07/22/18 19:30 Total Bilirubin 1.20 H AST 54 H ALT 76 H EKG Data: EKG pending Assess/Plan/Problems-Billing Assessment: 83 year old man w/ recent bladder tumor excision, admitted w/ hematuria and hyponatremia - Patient Problems (1) Hyponatremia Status: Acute Priority: High Code(s): E87.1 - HYPO-OSMOLALITY AND HYPONATREMIA SNOMED Code(s): 37845358 Comment: -Hyponatremia is in severe range, <120, and is likely acute, in last 2 days. -Previous sodium 131, due to HCTZ. -Inciting factors for acute phase include anesthesia, pain, causing SIADH as well as excess water intake. Post-obstruction diuresis could also contribute -Will start 3% saline, 60 ml over 4 hours, goal to correct to 125-128 range in 8 hours -BMP will be checked q4h (2) Hypertension Status: Acute Priority: Medium Code(s): I10 - ESSENTIAL (PRIMARY) HYPERTENSION SNOMED Code(s): 11960007 Comment: -BP very high in ER, improved w/ pain control -Will continue amlodipine, hold HCTZ due to hyponatremia (3) BPH (benign prostatic hyperplasia) Status: Acute Priority: Low Code(s): N40.0 - BENIGN PROSTATIC HYPERPLASIA WITHOUT LOWER URINRY TRACT SYMP SNOMED Code(s): 048519058 Comment: -Can continue flomax and finasteride (4) DVT prophylaxis Status: Acute Priority: Medium Code(s): DKG2503 - SNOMED Code(s): 920910362 Comment: -Can use SCDs -heparin and other anticoagulants contrandicated Status and Disposition: to OR, then admit to medical
[2018-07-22] MEDS ORDERED: Naloxone* 0.4 MG/ML 1 ML VIAL IV PRN (22:11)
[2018-07-22] MEDS ORDERED: fentaNYL* 50 MCG/ML 2 ML VIAL (100 MCG VIAL) IV PRN (22:11)
[2018-07-22] MEDS ORDERED: Acetaminophen TAB* 325 MG PO PRN (22:11)
[2018-07-22] MEDS ORDERED: DiMENhydriNATE IV* 50 MG/ML VIAL IV PUSH PRN (22:11)
[2018-07-22] MEDS ORDERED: oxyCODONE/Acetamin 5/325 MG* TAB PO PRN (22:11)
[2018-07-22] MEDS ORDERED: Ondansetron INJ* 2 MG/ML VIAL IV PRN (22:11)
[2018-07-22] MEDS ORDERED: Chloroprocaine 2%* 20 ML VIAL ONE (22:29)
[2018-07-23 00:16] LABS: BUN/Creatinine Ratio 15.8 (8-20); Calcium 7.8 mg/dL (8.6-10.3); EGFR African American 74.1 (>60); EGFR Non-African American 61.2 (>60); Potassium 4.2 mmol/L (3.5-5.0)
[2018-07-23] MEDS ORDERED: Oxybutynin TAB* 5 MG PO PRN (01:23)
[2018-07-23] MEDS ORDERED: Morphine INJ* 2 MG/ML 1 ML SYRINGE (TWO MG - NEW SYRINGE VERSION) IV PRN (01:26)
[2018-07-23] MEDS ORDERED: Acetaminophen TAB* 325 MG PO PRN (01:27)
[2018-07-23] MEDS: amLODIPine TAB* 5 MG PO SCH ×2 (02:20→17:39)
[2018-07-23 03:47] LABS: Urine Appearance Clear; Urine Bacteria Absent (Absent); Urine Bilirubin Negative (Negative); Urine Blood 3+ (Negative); Urine Color Amber; Urine Glucose Negative (Negative); Urine Ketones Negative (Negative); Urine Nitrite Negative (Negative); Urine Protein 2+(100 mg/dL) (Negative); Urine Red Blood Cell 3+(>10/hpf) (Absent); Urine Specific Gravity 1.005 (1.010-1.030); Urine Urobilinogen Negative (Negative); Urine White Blood Cell 3+(>20/hpf) (Absent)
[2018-07-23 03:57] LABS: BUN/Creatinine Ratio 16.7 (8-20); Calcium 7.8 mg/dL (8.6-10.3); EGFR African American 78.8 (>60); EGFR Non-African American 65.1 (>60)
--- NOTE | 2018-07-23 04:40 | OP ---
DATE OF OPERATION: 07/22/18 - ROOM #347 DATE OF : 33 SURGEON: Dion Galdamez MD ANESTHESIOLOGIST: Dr. Hernandez ANESTHESIA: Spinal. PRE-OP DIAGNOSES: 1. History of bladder tumor. 2. Status post transurethral resection of bladder tumor and placement of left ureteral stent. 3. Post transurethral resection bleeding and clot retention. POST-OP DIAGNOSIS: Post transurethral resection bleeding and clot retention. OPERATIVE PROCEDURE: 1. Cystoscopy. 2. Evacuation of clot retention. 3. Fulguration of bleeders of bladder. INDICATIONS: Mr. Nieves is an 83-year-old male who has history of high grade noninvasive transitional cell carcinoma of the urinary bladder diagnosed 1 year ago and treated with a course of intravesical BCG. Recent cystoscopy showed suspicious lesions involving the mid and left trigone. Two days ago, the patient underwent a transurethral resection of the above bladder lesions and insertion of a left urethral stent. He did well postoperatively and was sent home on Manzanares catheter drainage. The patient called today with clot, urinary retention. I evaluated him in the emergency room, replaced his Manzanares, and irrigated the bladder from clots and put him on continuous bladder irrigation. The urine continued to be somewhat reddish and I decided to take him to the operating room for cystoscopy and fulguration of bladder bleeders. PATHOLOGY AT CYSTOSCOPY: The penile and bulbar urethrae looked normal. The prostatic urethra measured 2.5 to 3 cm in length and there was moderate degree of obstruction by trilobar hyperplasia of the prostate. There were multiple clots in the bladder and also multiple clots adherent to the mid and left trigone and just proximal to the bladder neck at the site of resection. After evacuating the bladder clots and using the resectoscope to remove the clots from the site of resection, there were several venous oozers noted. No arterial bleeder was seen. The bleeders were electrocoagulated. The stent was in good position in the distal ureter. DESCRIPTION OF PROCEDURE: After successful spinal anesthesia, patient was placed in the lithotomy position and was prepped and draped for a cystoscopy. The resectoscope was introduced inside the bladder. The bladder was then irrigated and the clots were evacuated. Bladder was carefully inspected with the resectoscope and the clots that were adherent to the site of TUR were then removed with a loop. Extensive fulguration was then performed at the site of the resection and all the venous oozers were controlled. No fulguration was done in the area of the right trigone. After making sure there was good hemostasis and no residual clots were noted, the resectoscope was removed and a size 22-Telugu Manzanares catheter was passed inside the bladder and balloon inflated with 20 cc of water. Irrigation yielded clear returns. The patient tolerated the procedure well and left the operating room in good condition. [id number]/[facility] #: [id number] MTDD
[2018-07-23] MEDS: NS 0.9% 1000 ML** 1,000 ML IV SCH ×3 (05:33→23:02)
[2018-07-23 06:32] LABS: Hematocrit 31 % (36-46)
[2018-07-23 06:47] LABS: Calcium 7.7 mg/dL (8.6-10.3); EGFR African American 86.1 (>60); EGFR Non-African American 71.2 (>60); Potassium 3.7 mmol/L (3.5-5.0)
[2018-07-23 16:27] LABS: BUN/Creatinine Ratio 18.5 (8-20); Calcium 7.6 mg/dL (8.6-10.3); EGFR African American 70.5 (>60); EGFR Non-African American 58.2 (>60); Potassium 4.1 mmol/L (3.5-5.0)
--- NOTE | 2018-07-23 17:33 | PN ---
Subjective Date of Service: 07/23/18 Interval History: Feels well. Reports lower abd pain has improved. Reports only occasional "spasming". 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 [employer], smoked briefly in teens, uses alcohol socially, no recreational drugs Past Medical History: Findings - Hypertension, BPH, h/o TB, h/o HepC; PSH: excision rib 1955 for TB, hemorrhoidectomy in , cholecystectomy 05/18, Rt inguinal hernia repair 2014 Objective Active Medications: Acetaminophen (Tylenol Tab*) 650 mg PO Q4H PRN PRN Reason: PAIN MILD Amlodipine Besylate (Norvasc Tab*) 5 mg PO QPM [facility] Last Admin: 07/23/18 02:20 Dose: Not Given Finasteride (Proscar Tab*) 5 mg PO QPM [facility] Sodium Chloride (Ns 0.9% 1000 Ml) 1,000 mls @ 125 mls/hr IV PER RATE [facility] Last Admin: 07/23/18 14:13 Dose: 125 mls/hr Morphine Sulfate (Morphine Inj (Syringe))*) 2 mg IV Q3H PRN PRN Reason: PAIN MODERATE TO SEVERE Oxybutynin Chloride (Ditropan Tab*) 5 mg PO Q6H PRN PRN Reason: BLADDER SPASMS Tamsulosin HCl (Flomax Cap*) 0.4 mg PO QPM [facility] Vital Signs - 8 hr 07/23/18 07/23/18 11:11 15:42 Temperature 98.5 F 97.8 F Pulse Rate 78 83 Respiratory 14 15 Rate Blood Pressure 108/62 139/80 (mmHg) O2 Sat by Pulse 96 98 Oximetry Oxygen Devices in Use Now: None Appearance: Comfortable, NAD Eyes: No Scleral Icterus Ears/Nose/Mouth/Throat: Clear Oropharnyx, Mucous Membranes Moist Neck: NL Appearance and Movements; NL JVP Respiratory: Symmetrical Chest Expansion and Respiratory Effort, Clear to Auscultation Cardiovascular: NL Sounds; No Murmurs; No JVD, RRR Abdominal: NL Sounds; No Tenderness; No Distention Lymphatic: No Cervical Adenopathy Extremities: No Clubbing, Cyanosis Skin: No Rash or Ulcers Neurological: Alert and Oriented x 3 Nutrition: Taking PO's Result Diagrams: 07/23/18 06:18 07/23/18 16:02 Additional Lab and Data: Laboratory Results - last 24 hr 07/22/18 07/22/18 07/22/18 19:30 19:30 19:30 WBC 13.5 H RBC 4.09 L Hgb 13.5 L Hct 38 MCV 93 MCH 33 H MCHC 36 RDW 13 Plt Count 144 L MPV 7.8 Sodium 119 L* Potassium 3.8 Chloride 87 L Carbon Dioxide 20 L Anion Gap 12 H BUN 21 Creatinine 1.11 Est GFR ( Amer) 76.4 Est GFR (Non-Af Amer) 63.1 BUN/Creatinine Ratio 18.9 Glucose 114 H Serum Osmolality 268 L Calcium 9.0 Magnesium Total Bilirubin 1.20 H AST 54 H ALT 76 H Alkaline Phosphatase 70 Total Protein 7.5 Albumin 4.2 Globulin 3.3 Albumin/Globulin Ratio 1.3 Urine Color Urine Appearance Urine pH Ur Specific [place] Urine Protein Urine Ketones Urine Blood Urine Nitrate Urine Bilirubin Urine Urobilinogen Ur Leukocyte Esterase Urine WBC (Auto) Urine RBC (Auto) Urine Bacteria Urine Osmolality U Sodium Concentration Urine Glucose 07/22/18 07/23/18 07/23/18 23:56 03:30 03:30 WBC RBC Hgb Hct MCV MCH MCHC RDW Plt Count MPV Sodium 124 L 127 L Potassium 4.2 4.0 Chloride 94 L 98 L Carbon Dioxide 26 22 Anion Gap 4 7 BUN 18 18 Creatinine 1.14 1.08 Est GFR ( Amer) 74.1 78.8 Est GFR (Non-Af Amer) 61.2 65.1 BUN/Creatinine Ratio 15.8 16.7 Glucose 122 H 142 H Serum Osmolality Calcium 7.8 L 7.8 L Magnesium 2.0 Total Bilirubin AST ALT Alkaline Phosphatase Total Protein Albumin Globulin Albumin/Globulin Ratio Urine Color Lolly Urine Appearance Clear Urine pH 6.0 Ur Specific [place] 1.005 L Urine Protein 2+(100 mg/dl) A Urine Ketones Negative Urine Blood 3+ A Urine Nitrate Negative Urine Bilirubin Negative Urine Urobilinogen Negative Ur Leukocyte Esterase 3+ A Urine WBC (Auto) 3+(>20/hpf) A Urine RBC (Auto) 3+(>10/hpf) A Urine Bacteria Absent Urine Osmolality U Sodium Concentration Urine Glucose Negative 07/23/18 07/23/18 07/23/18 06:18 06:18 15:30 WBC RBC Hgb 11.0 L Hct 31 L MCV MCH MCHC RDW Plt Count MPV Sodium 129 L Potassium 3.7 Chloride 101 Carbon Dioxide 23 Anion Gap 5 BUN 17 Creatinine 1.00 Est GFR ( Amer) 86.1 Est GFR (Non-Af Amer) 71.2 BUN/Creatinine Ratio 17.0 Glucose 129 H Serum Osmolality Calcium 7.7 L Magnesium Total Bilirubin AST ALT Alkaline Phosphatase Total Protein Albumin Globulin Albumin/Globulin Ratio Urine Color Urine Appearance Urine pH Ur Specific [place] Urine Protein Urine Ketones Urine Blood Urine Nitrate Urine Bilirubin Urine Urobilinogen Ur Leukocyte Esterase Urine WBC (Auto) Urine RBC (Auto) Urine Bacteria Urine Osmolality 286 U Sodium Concentration Urine Glucose 07/23/18 07/23/18 15:30 16:02 WBC RBC Hgb Hct MCV MCH MCHC RDW Plt Count MPV Sodium 127 L Potassium 4.1 Chloride 101 Carbon Dioxide 23 Anion Gap 3 BUN 22 Creatinine 1.19 H Est GFR ( Amer) 70.5 Est GFR (Non-Af Amer) 58.2 BUN/Creatinine Ratio 18.5 Glucose 130 H Serum Osmolality Calcium 7.6 L Magnesium Total Bilirubin AST ALT Alkaline Phosphatase Total Protein Albumin Globulin Albumin/Globulin Ratio Urine Color Urine Appearance Urine pH Ur Specific [place] Urine Protein Urine Ketones Urine Blood Urine Nitrate Urine Bilirubin Urine Urobilinogen Ur Leukocyte Esterase Urine WBC (Auto) Urine RBC (Auto) Urine Bacteria Urine Osmolality U Sodium Concentration 38 Urine Glucose Assess/Plan/Problems-Billing Assessment: 83 year old man w/ recent bladder tumor excision, admitted w/ hematuria and hyponatremia - Patient Problems (1) Status post cystoscopy Comment: - Last evening with Urology - Clot removal and fulguration (2) Hyponatremia Comment: - Hyponatremia was severe on admission. Received 3% saline at 60 ml over 4 hours and Na corrected - Inciting factors for acute phase include anesthesia, pain, causing SIADH as well as excess water intake. Post-obstruction diuresis could also contribute - Na 129 this morning and 127 on recheck this afternoon - Recheck tomorrow - Urine sodium and osmo ordered, although this will be completed on today's urine and would be more accurate on admitting urine sample (3) BPH (benign prostatic hyperplasia) Comment: -Can continue flomax and finasteride (4) Hypertension Comment: - BP very high in ER, improved w/ pain control - Will continue amlodipine, hold HCTZ due to hyponatremia (5) DVT prophylaxis Comment: -Can use SCDs -heparin and other anticoagulants contrandicated Status and Disposition: to OR, then admit to medical Attending: Abhay Lopez
[2018-07-23] MEDS ORDERED: Tamsulosin CAP* 0.4 MG PO SCH (18:00)
[2018-07-23] MEDS ORDERED: Finasteride TAB* 5 MG PO SCH (18:00)
[2018-07-24 05:34] LABS: ABS Basophils 0 10^3/ul (0-0.2); ABS Eosinophils 0.1 10^3/ul (0-0.6); ABS Lymphocytes 1.3 10^3/ul (1.0-4.8); ABS Monocytes 1.4 10^3/ul (0-0.8); ABS Neutrophils 6.8 10^3/ul (1.5-7.7); ABS Nucleated RBC 0 10^3/ul; Eosinophil % 1.2 %; Hematocrit 32 % (36-46); Hemoglobin 11.2 g/dL (14.0-18.0); Lymphocyte % 13.3 %; Mean Corpuscular HGB Conc 35 g/dL (31-36); Mean Corpuscular Hemoglobin 33 pg (27-31); Mean Corpuscular Volume 95 fL (80-94); Mean Platelet Volume 8.1 fL (7.4-10.4); Nucleated Red Blood Cells % 0; Platelet Count 111 10^3/uL (150-450); Red Blood Count 3.37 10^6 /uL (4.18-5.48); Red Cell Distribution Width 14 % (10.5-15); White Blood Count 9.6 10^3/uL (3.5-10.8)
[2018-07-24 06:05] LABS: BUN/Creatinine Ratio 16.8 (8-20); Calcium 8.6 mg/dL (8.6-10.3); EGFR African American 85.2 (>60); EGFR Non-African American 70.4 (>60); Potassium 4.6 mmol/L (3.5-5.0)
[2018-07-24 09:20] VITALS: BP 122/71
--- NOTE | 2018-07-25 00:49 | DS ---
CC: [facility] * DISCHARGE SUMMARY: DATE OF ADMISSION: 07/22/18 DATE OF DISCHARGE: 07/24/18 PRIMARY CARE PROVIDER: Treesa Soto. ATTENDING PHYSICIAN: Dr. Lopez * (dictated by Alin Btuler NP). PRIMARY DIAGNOSES: 1. Hyponatremia. 2. Status post cystoscopy, evaluation of clot retention, fulguration of bleeders of bladder. SECONDARY DIAGNOSES: 1. Hypertension. 2. Benign prostatic hypertrophy. CONSULTATION WHILE IN THE HOSPITAL: Dr. Galdamez, Urology. PROCEDURES WHILE IN THE HOSPITAL: Cystoscopy, evacuation of clot retention, fulguration of bleeders of bladder. STUDIES WHILE IN THE HOSPITAL: No studies. DISCHARGE HOME MEDICATIONS: New home medications: No new home medications. Continued home medications: 1. Flomax 0.4 mg p.o. q.p.m. 2. Multivitamin 1 each p.o. q.a.m. 3. Proscar 5 mg p.o. q.p.m. 4. Mary 180 mg p.o. daily p.r.n. 5. Amlodipine 5 mg p.o. q.p.m. Discontinued home medications: No home medications discontinued. Changed home medications: No home medications changed. HISTORY OF PRESENT ILLNESS/HOSPITAL COURSE: Mr. Nieves is an 83-year-old male with a past medical history significant for hypertension, who presented to the emergency room on 07/22/18 with complaints of willie blood and clots in the Manzanares catheter and catheter not draining well. Please see history and physical dictated by Ross Romeo MD for complete summary of the events leading up to this hospitalization, but in short, the patient had an elective transurethral resection of bladder tumor on 07/20/[address] Galdamez and presented to the emergency room due to blood and catheter appearing to be clogged. While in the emergency room, Dr. Galdamez evaluated the patient. Manzanares was changed and bright red blood continued after several liters of Manzanares irrigation. The patient required pain medication. Dr. Galdamez decided to take the patient to the OR that evening for cystoscopy and fulguration of bleeding lesions and evacuation of clot. He decided to take him to the OR for blood loss. While in the emergency room, it was also noted that the patient was hyponatremic in the severe range with a sodium of less than 120. It was suspected this was acute given the patient's recent anesthesia, pain, and excessive water intake. The patient was started on 3% saline and BNP was checked regularly. The patient corrected well. The patient was also noted to have very high blood pressure in the emergency room, which improved the pain control. The patient was continued on his home medications. We did hold patient's HCTZ due to hyponatremia. The patient had a stay on short-stay surgical after his procedure with Dr. Galdamez. The patient recovered well. The patient's BNP has been stable. The patient's Manzanares is draining well. Urine is pink and blood tinged, but not willie blood and no clots were evident. Today, the patient's sodium was 135 this morning. Given the significant change from 127 on 07/23/18 to 135 on 07/24/18, I initially recommended a repeat BNP prior to discharge, but the patient declined. Either way, the patient is stable for discharge and agrees to follow up next week with [facility] for repeat BNP. The patient is stable for discharge home. REVIEW OF SYSTEMS: General: No fevers. No anorexia. No weight loss. Cardiac : No chest pain, no shortness of breath, no palpations. Respiratory: No cough , no shortness of breath, wheezing. Abdomen: No abdominal pain, no nausea, no vomiting. : The patient reports Manzanares is draining well. Extremities: No edema. No numbness or tingling. Musculoskeletal: No pain or deformities. Skin: No rashes or lesions. Psych: No anxiety or depression. PHYSICAL EXAMINATION: General: Mr. Nieves is an 83-year-old male, who is sitting in the recliner with his at bedside. He is in no acute distress. He appears stated age. Vital Signs: Temp 97.4, HR 77, RR 15, O2 saturation is 92 % on room air, BP is 122/71. HEENT: Oral mucosa is moist without lesion. Posterior pharynx is clear. Neck: Full range of motion. No lymphadenopathy. Respiratory: Symmetrical chest expansion. No accessory muscle use. Lungs are clear to auscultation. No rhonchi, wheezes, or rales. CV: Regular rate and rhythm. S1, S2 present. No murmurs, rubs, or gallops. Extremities: Skin is warm and smooth bilaterally. No edema. No clubbing or cyanosis. Pedal pulses 2+ bilaterally. Musculoskeletal: No pain or deformities. Abdomen: Soft, nontender to palpation. Bowel sounds x4. Neuro: The patient is awake, alert and oriented x4. Neuro exam is grossly intact. No focal weakness or deficits noted. Skin: Grossly intact with lesions. DIAGNOSTIC STUDIES/LAB DATA: WBC 9.6, hemoglobin 11.2, hematocrit 32, platelets 111,000. Sodium 135, potassium 4.6, chloride 105, carbon dioxide 27, BUN 17, creatinine 1.01. DISCHARGE PLAN/FOLLOWUP: 1. Status post cystoscopy, evacuation of clot retention, fulguration of bleeders of the bladder: The patient has scheduled followup tomorrow with Dr. Galdamez. The patient is well versed in taking care of his Manzanares and monitoring for signs and symptoms of new and worsening symptoms. 2. Hyponatremia: As mentioned above, it would have been preferable to recheck BNP prior to discharge to make sure it was not an error, but given the patient has been stable, he can be discharged home and follow up with [facility] next week for repeat BNP. 3. Hypertension: The patient to continue his home medications the same. 4. Benign prostatic hypertrophy: The patient should continue his Flomax and finasteride. The patient should follow up with Urology tomorrow as scheduled. 5. Education: The patient was educated on new or worsening symptoms and when to return to the emergency department. The patient stated understanding. 6. Followup: As mentioned above, the patient should follow up with [facility] next week for repeat BNP. The patient has a scheduled followup with Dr. Galdamez tomorrow. TIME SPENT: Approximately 40 minutes were spent on this discharge, greater than half the time was spent [id number] with the patient discussing discharge plans and instructions. This is a summarized report of a complex medical history and hospital stay. For further details, please see the entire medical record. ALIN BUTLER, SAHIL [id number]/[facility] #: [id number] [facility] HOSPITALBoy
== END 2018-07-24 11:30 | disposition home or self-care (01) | DRG 952 ==
LOC: ED 17:56 → OR 22:06 → SSU 07-23 00:48
PROVIDERS: ADMIT Internal Medicine; ATTEND Student in an Organized Health Care Education/Training Program
PROC: 0TCB8ZZ Extirpation of Matter from Bladder, Via Natural or Artificial Opening Endoscopic (ICD-10-PCS; 2018-07-22)
PROC: 0T5B8ZZ Destruction of Bladder, Via Natural or Artificial Opening Endoscopic (ICD-10-PCS; principal; 2018-07-22 21:45)
DX: N99.820 Postprocedural hemorrhage of a genitourinary system organ or structure following a genitourinary system procedure (principal); E22.2 Syndrome of inappropriate secretion of antidiuretic hormone; N40.0 Benign prostatic hyperplasia without lower urinary tract symptoms; I10 Essential (primary) hypertension; J30.89 Other allergic rhinitis; Z86.19 Personal history of other infectious and parasitic diseases; Z86.11 Personal history of tuberculosis; Z80.0 Family history of malignant neoplasm of digestive organs; Z79.899 Other long term (current) drug therapy; Z85.51 Personal history of malignant neoplasm of bladder
CPT/HCPCS: 36415; 80048; 80053; 81003; 81015; 83735; 83930; 83935; 84300; 85014; 85018; 85025; 85027; 87086; 99284; A9270-GY; J0696; J2270; J2400; J2405; J2704; J3010

== ENCOUNTER 2018-08-08 08:46 | Day surgery (SDC) | payer BC ==
[2018-08-08] MEDS ORDERED: cefTRIAXone(*) 2 GM ADDV.VIAL IVPB ONE (08:58)
[2018-08-08 09:33] LABS: Hematocrit 30 % (42-52); Hemoglobin 10.8 g/dL (14.0-18.0); Mean Corpuscular HGB Conc 36 g/dL (31-36); Mean Corpuscular Hemoglobin 34 pg (27-31); Mean Corpuscular Volume 94 fL (80-94); Mean Platelet Volume 6.7 fL (7.4-10.4); Platelet Count 255 10^3/uL (150-450); Red Blood Count 3.23 10^6 /uL (4.18-5.48); Red Cell Distribution Width 13 % (10.5-15); White Blood Count 10.4 10^3/uL (3.5-10.8)
[2018-08-08 10:04] LABS: BUN/Creatinine Ratio 16.9 (8-20); Calcium 9.3 mg/dL (8.6-10.3); EGFR African American 106.8 (>60); EGFR Non-African American 88.3 (>60); Potassium 3.9 mmol/L (3.5-5.0)
[2018-08-08] MEDS ORDERED: HYDROcodone/ACETAMIN 5-325 MG* 1 TAB PO PRN (10:21)
[2018-08-08] MEDS ORDERED: oxyCODONE/Acetamin 5/325 MG* TAB PO PRN (10:21)
[2018-08-08] MEDS ORDERED: Naloxone* 0.4 MG/ML 1 ML VIAL IV PRN (10:21)
[2018-08-08] MEDS ORDERED: fentaNYL* 50 MCG/ML 2 ML VIAL (100 MCG VIAL) IV PRN (10:21)
[2018-08-08] MEDS ORDERED: Ondansetron INJ* 2 MG/ML VIAL IV PRN (10:21)
[2018-08-08] MEDS ORDERED: Midazolam* 1 MG/ML 5 ML VIAL (5 MG) ONE (10:34)
[2018-08-08] MEDS ORDERED: Chloroprocaine 2%* 20 ML VIAL ONE (10:43)
--- NOTE | 2018-08-08 14:02 | OP ---
OPERATIVE REPORT: DATE OF OPERATION: 08/08/18 - [facility] DATE OF : 33 SURGEON: Dion Galdamez MD. ANESTHESIOLOGIST: Dr. Wilbert Elizalde. ANESTHESIA: Spinal. PRE-OP DIAGNOSES: 1. Status post transurethral resection of bladder tumor. 2. Status post placement of left ureteral stent. 3. Recurrent gross hematuria. POST-OP DIAGNOSES: 1. Status post TUR of bladder tumor. 2. Status post placement of left ureteral stent. 3. Clot urinary retention. 4. Venous bleeders from TUR site. OPERATIVE PROCEDURE: 1. Cystoscopy. 2. Evacuation of clot retention. 3. Fulguration of bladder bleeders. 4. Removal of left ureteral stent. INDICATION FOR PROCEDURE: Mr. 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 His upper tracts looked normal on CT urogram. At that time, he underwent a transurethral resection of the bladder tumor, and afterwards received 6 weeks' course of intravesical BCG treatments. He could not tolerate the maintenance BCG treatments. Follow-up office cystoscopy about 6 weeks ago showed suspicious flat lesions occupying the left base of the bladder including the left and mid trigone and the bladder neck. He is also known to have a large obstructing prostate and has been maintained on finasteride and tamsulosin. On 07/20/18, he underwent cystoscopy, transurethral resection of the bladder lesions, and placement of a left ureteral stent. He initially did fine; however , he had to be readmitted a few days later because of clot urinary retention. He required cystoscopy and fulguration of the bleeders of the TUR site. He did well initially; however, when the Manzanares catheter was removed, he went into urinary retention and required Manzanares catheter reinsertion. He was kept on catheter drainage until 2 days ago. His urine was mostly clear. The Manzanares catheter was removed, but he called last evening because of urinary retention and gross hematuria. He was seen after hours in the office by Dr. Alvarado, had catheter placement and clots irrigation. Because the gross hematuria is persistent, he is now taken to the operating room for cystoscopy and evaluation and treatment of the gross hematuria. PATHOLOGY: At cystoscopy, the penile and bulbar urethrae looked normal. The prostatic urethra measured about 3 cm in length and there was significant degree of obstruction by bilobar hyperplasia of the prostate. There were also congested vessels at the level of the prostatic urethra. Examination of the bladder showed several clots. The site of the TUR was carefully inspected and there were a few venous oozers. The distal limb of the stent was seen coming from the left ureteral orifice. There was no bleeding around the stent and no edema around the left orifice. The rest of the bladder wall looked normal and there were no other suspicious lesions seen. DESCRIPTION OF PROCEDURE: After successful spinal anesthesia, the patient was placed in the lithotomy position and was prepped and draped for a cystoscopy. The resectoscope was introduced inside the bladder, and the urethra and the bladder wall were inspected. The bladder was then irrigated and all of the clots were evacuated. Careful inspection of the bladder was then done. The right ureteral orifice looked normal. The venous oozers from the site of the TUR were thoroughly fulgurated. There were no arterial bleeders noted. Because of no edema around the left ureteral orifice, the stent was removed intact. After a careful inspection, which showed no bleeding and no residual clots, the resectoscope was removed and a size 22-[place] Manzanares catheter was passed inside the bladder and the balloon inflated with 10 cc of water. Irrigation yielded clear returns. I think the causes of the recurrent gross hematuria is partial urinary retention causing distention of the bladder, and the scabs at the site of the TUR falling off and the hematuria recurring. The plan is to keep him on catheter drainage for about 10 days. He will also continue on all his prostate medications. [id number]/[facility] #: [id number] JASMEET
[2018-08-08 14:35] VITALS: BP 97/52
== END 2018-08-08 14:30 | disposition home or self-care (01) ==
LOC: OR 08:46
PROVIDERS: ATTEND Urology
DX: N99.820 Postprocedural hemorrhage of a genitourinary system organ or structure following a genitourinary system procedure (principal); R31.0 Gross hematuria; C67.9 Malignant neoplasm of bladder, unspecified; I10 Essential (primary) hypertension; E87.1 Hypo-osmolality and hyponatremia; N40.0 Benign prostatic hyperplasia without lower urinary tract symptoms
CPT/HCPCS: 36415; 80048; 85027; J0696; J2250; J2400

== ENCOUNTER 2018-08-18 12:21 | Observation (INO) | payer BC ==
[2018-08-18 13:23] LABS: ABS Basophils 0.1 10^3/ul (0-0.2); ABS Eosinophils 0.1 10^3/ul (0-0.6); ABS Monocytes 0.7 10^3/ul (0-0.8); ABS Neutrophils 4.3 10^3/ul (1.5-7.7); Eosinophil % 1.1 %; Hematocrit 28 % (42-52); Hemoglobin 9.7 g/dL (14.0-18.0); Lymphocyte % 16.8 %; Mean Corpuscular HGB Conc 35 g/dL (31-36); Mean Corpuscular Hemoglobin 34 pg (27-31); Mean Corpuscular Volume 97 fL (80-94); Mean Platelet Volume 7.1 fL (7.4-10.4); Platelet Count 214 10^3/uL (150-450); Red Blood Count 2.88 10^6 /uL (4.18-5.48); Red Cell Distribution Width 13 % (10.5-15); White Blood Count 6.2 10^3/uL (3.5-10.8)
[2018-08-18 13:29] LABS: Activated Partial Thrombo Time 35.3 seconds (26.0-36.3)
[2018-08-18] MEDS ORDERED: Phytonadione Oral Solution* 5 MG/25 ML UDC PO ONE (13:35)
[2018-08-18 13:41] LABS: ALT 46 U/L (7-52); Albumin 3.8 g/dL (3.2-5.2); Albumin/Globulin Ratio 1.2 (1-3); Alkaline Phosphatase 58 U/L (34-104); BUN/Creatinine Ratio 20.8 (8-20); Blood Urea Nitrogen 15 mg/dL (6-24); CO2 Carbon Dioxide 26 mmol/L (22-32); Calcium 8.9 mg/dL (8.6-10.3); Chloride 97 mmol/L (101-111); EGFR African American 125.8 (>60); Globulin 3.1 g/dL (2-4); Glucose 118 mg/dL (70-100); Sodium 129 mmol/L (135-145); Total Protein 6.9 g/dL (6.4-8.9)
[2018-08-18 13:49] LABS: Anion Gap 6 mmol/L (2-11)
--- NOTE | 2018-08-18 14:20 | HP ---
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 Mr. Nieves's history goes back to about one year ago when he presented with recurrent episodes of gross painless hematuria. He was diagnosed then with a 4- cm transitional cell carcinoma arising from the left base of the bladder. At that time, a CT urogram showed normal upper tracts. He underwent a transurethral resection of the bladder tumor and the pathology showed it to be a high-grade transitional cell carcinoma with no muscle invasion. After he was healed from his surgery, he received a 6 weeks' course of intravesical BCG. Three months later, he was started on a 3 weeks' course of maintenance BCG. He however could not tolerate it because of significant irritative bladder symptoms, and the treatments were discontinued. He was followed with periodic cystoscopies. On 07/20/18 he was admitted because of suspicious tumor involving the left base of the bladder and the left trigone. He underwent a transurethral resection of the above lesions with placement of a left ureteral stent. He had to be taken back to the operating room 2 days later because of gross hematuria, and the site of the TUR was fulgurated. He did fine afterwards. He however presented again on 08/08/18 with urinary retention and recurrent gross hematuria. He had to be taken to the operating room where he underwent a cystoscopy, removal of the left ureteral stent, and fulguration of venous bleeders from the TUR site. He was discharged home with Manzanares catheter drainage, having clear urine. He was kept on catheter drainage, his urine has remained clear until last night when the gross hematuria recurred. I saw him in my office this morning, and did extensive bladder irrigation, but the urine did not clear enough to send him back home. He is now admitted for further management. PAST MEDICAL HISTORY AND SYSTEM REVIEW: Relevant for the diagnosis of hepatitis C noted at the time of cholecystectomy and liver biopsy in 2014. He could not tolerate interferon treatment and he was not treated for his condition. He has remained minimally symptomatic from the liver. He has not had any recent coagulation studies.He has not reported any other signs of bleeding such as nosebleed or easy bruisability. MEDICATIONS: He has prostate enlargement and obstruction and is maintained on Tamsulosin 0.4 mg daily, and Finasteride 5 mg daily. He has mild hypertension and he is maintained on amlodipine 5 mg daily. The patient is otherwise in good health. ALLERGIES: The patient has no allergies to medications. SOCIAL HISTORY: He is a nonsmoker and he does not drink alcohol and has no illicit drug use. 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 PHYSICAL EXAMINATION GENERAL: He is a pleasant male who is in moderate discomfort because of his bladder. VITAL SIGNS: Normal. LUNGS: Clear. HEART: Regular and rhythmic. No murmurs. ABDOMEN: Soft without any masses. EXTERNAL GENITALIA: Normal. EXTREMITIES: Show no edema. IMPRESSION: 1. History of high-grade noninvasive transitional cell carcinoma treated with transurethral resection and 1 course of intravesical BCG. 2. Recurrent bladder tumor which is low-grade and noninvasive, resected about one month ago. 3. Recurrent episodes of hematuria, which seems to be originating from the site of his recent resection. 4. History of hepatitis C, not treated. PLAN: 1. The patient is admitted. I placed a 22 Fr 3-way Manzanares catheter and started him on continuous bladder irrigation. 2. Considering the recurrent episodes of hematuria in spite of good surgical control of his bleeding, a coagulopathy has to be ruled out especially with the history of untreated hepatitis C. Coag studies will be obtained, and Medical consultation is obtained. I discussed his condition with the hospitalist service (Dr. Mancini) and she will be seeing him. 3. A CT Urogram will be obtained to evaluate his upper tracts. 4. If the gross hematuria persists in spite of the CBI, I will take him to the Operating Room for cystoscopy and fulguration. [id number]/[facility] #: [id number] JASMEET
--- NOTE | 2018-08-18 14:36 | CONS ---
[facility] CONSULTATION REPORT: DATE OF CONSULT: 08/18/18 ATTENDING PHYSICIAN: Dr. Dion Galdamez. CONSULTING PHYSICIAN: Dr. Jessi Mancini (dictation provided by Kasie Benavides NP). REASON FOR CONSULT: Question regarding possible bleeding diathesis in a patient with ongoing hematuria and history of hepatitis C. HISTORY OF PRESENT ILLNESS: Mr. Nieves is an 83-year-old male with a past medical history of bladder tumor, status post resection and TURP on 07/12/[address] Galdamez; as well as hypertension, who presents today again with concern for hematuria. Mr. Nieves has a history of bladder tumor, status post cystoscopy, TURP , and placement of left ureteral stent. He thereafter had a 6-week course of intravesical BCG. He cannot tolerate the maintenance BCG due to irritative bladder symptoms and then went on to have followup surveillance cystoscopies. Around 07/20/18, the patient had note of an irregular suspicious lesion occupying the left trigone and left ureteral orifice and he was therefore admitted to the hospital for resection on 07/20/18. 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 However, after this surgery, the patient had difficulty obtaining hemostasis and had hematuria for 3 days postoperatively. He therefore returned to the OR with Dr. Galdamez on 07/23/18 for cauterization. The patient did well for about 2 weeks, but then again had hematuria and returned to the operating room on 08/08/18 with note the patient made of bleeding from the transurethral resection site. The patient did well until today when he again had hematuria and was seen in Dr. Gadlamez's office. Attempts were made to irrigate the bladder to see that could sufficiently control the bleeding, but unfortunately he had persistent hematuria and therefore has been admitted to the hospital by Dr. Galdamez today. Dr. Galdamez states that this amount of bleeding is very unusual given the bladder tumor and resections that the patient has had. Mr. Nieves has a history of hepatitis C. He underwent a cholecystectomy with Dr. Sellers in 2014 and at that time it was noted that the liver appeared abnormal. A liver biopsy was taken and was confirmed to be positive for hepatitis C. At that time, efforts were made to treat with interferon, but the patient was unable to tolerate this and therefore has not undergone any treatment for hepatitis C. In terms of question of bleeding diathesis, the patient states he does not feel that he bruises easily. He feels that he does not have any difficulty with clotting for minor cuts around the home and that he does not have to apply pressure for any prolonged period of time and his agrees. He states that other than the hematuria he has had no health concerns. He does have a history of hypertension for which he takes amlodipine. PAST MEDICAL HISTORY: 1. Hypertension. 2. History of bladder tumor with ongoing intermittent hematuria, status post cauterization with Dr. Galdamez. 3. Indwelling Manzanares. 4. Chronic hepatitis C. 5. History of cholecystectomy. MEDICATIONS: Outpatient are: 1. Amlodipine 5 mg p.o. q.p.m. 2. Tamsulosin 0.4 mg p.o. q.p.m. 3. Multivitamin 1 tab each p.o. q.a.m. 4. Finasteride 5 mg p.o. q.p.m. 5. Fexofenadine 180 mg p.o. daily p.r.n. FAMILY HISTORY: Noncontributory. SOCIAL HISTORY: No report of alcohol, tobacco, or drug use. The patient lives with his , who is his healthcare proxy. REVIEW OF SYSTEMS: A 14-point review of systems was completed with Mr. Nieves and all those not mentioned above were negative. PHYSICAL EXAM: Vital Signs: Temperature 98.3, pulse rate 79, respiratory rate 18, O2 saturation 97% on room air, blood pressure 130/69. General: Mr. Nieves is sitting in the bed, in no acute distress. His is at the bedside. Neuro: He is alert and oriented x3. He moves all extremities equally. There is no facial asymmetry or focal weakness. Extraocular movements are intact. Heart: S1, S2. No murmur, rub, or gallop and regular. Lungs are clear to auscultation bilaterally with no accessory muscle use and good aeration. The abdomen is soft, nontender with bowel sounds positive x4. Extremities: No cyanosis or edema. Skin is intact. LABORATORY DATA: Thus far we have labs showing white blood cell count 6.2; hemoglobin 9.7, most recent hemoglobin from 10 days ago was 10.8; hematocrit is 28; platelet count 214. INR 1.00, PTT 35.3. The complete metabolic panel is pending. ASSESSMENT AND PLAN: Mr. Nieves is an 83-year-old male with past medical history of bladder tumor, status post resection, with recurrence and resection, now having issues with intermittent hematuria and question for possible bleeding diathesis. Our plans are for consultation and recommendations as follows: 1. Hematuria. I appreciate Dr. Galdamez's concern for possible bleeding diathesis. Of course, he does have history of hepatitis C and this is possible. Thus far, his INR is 1.00, PTT 35.3. We will await the complete metabolic panel, but at least these coagulation studies speak against diathesis at this point, but we will continue further workup based on the findings from the labs that we have seen thus far. The patient is anemic and deserves close monitoring with repeat check in a.m., but no indication for blood transfusion at this time. Dr. Galdamez recommends that he would like a one-time dose of vitamin K regardless of findings to help with coagulation and hopes to avoid repeat surgical procedure and this has been ordered now. 2. History of hypertension. Plan to hold amlodipine. 3. Code status is full code. 4. Disposition: To surgical. TIME SPENT: Approximately 60 minutes was spent on the consultation of this patient, more than half the time spent with the patient at the bedside reviewing the events leading up to this hospitalization, performing the physical examination, and reviewing my plan of care. KASIE BENAVIDES NP [id number]/CPS #: [id number] JASMEET
[2018-08-18 15:00] LABS: Potassium Redraw 3.7 mmol/L (3.5-5.0)
[2018-08-18] MEDS: Tamsulosin CAP* 0.4 MG PO SCH (17:56)
[2018-08-18] MEDS: Finasteride TAB* 5 MG PO SCH (17:56)
[2018-08-18] MEDS: Lactated Ringers 1000 ML Bag* 1,000 ML IV SCH (17:56)
[2018-08-19 05:02] LABS: ABS Eosinophils 0.2 10^3/ul (0-0.6); ABS Lymphocytes 1.3 10^3/ul (1.0-4.8); ABS Neutrophils 3.3 10^3/ul (1.5-7.7); Hematocrit 29 % (42-52); Hemoglobin 9.8 g/dL (14.0-18.0); Lymphocyte % 23.1 %; Mean Corpuscular HGB Conc 34 g/dL (31-36); Mean Corpuscular Hemoglobin 33 pg (27-31); Mean Corpuscular Volume 98 fL (80-94); Mean Platelet Volume 6.6 fL (7.4-10.4); Nucleated Red Blood Cells % 0.1; Platelet Count 191 10^3/uL (150-450); Red Blood Count 2.97 10^6 /uL (4.18-5.48); Red Cell Distribution Width 14 % (10.5-15); White Blood Count 5.8 10^3/uL (3.5-10.8)
[2018-08-19] MEDS ORDERED: Iodixanol* (CONTRAST) 320 MG/ML 100 ML SDV IV ONE (08:23)
[2018-08-19] MEDS: Prenatal Vitamin TAB PO SCH (08:24)
[2018-08-19 08:35] LABS: Hepatitis B Surface Antigen Nonreactive (Nonreactive)
[2018-08-19 09:01] LABS: Hepatitis C Antibody High Reactive (Nonreactive)
--- NOTE | 2018-08-19 15:28 | PN ---
Subjective Date of Service: 08/19/18 Interval History: Mr. Nieves is feeling better today. He notes that his hematuria has essentially resolved, though he does have continuous bladder irrigation. Concerned about needing further surgery. Denies CP, SOB, N/V. No concerns from nursing. Family History: Unchanged from Admission Social History: Unchanged from Admission Past Medical History: Unchanged from Admission Objective Active Medications: Finasteride (Proscar Tab*) 5 mg PO QPM [facility] Lactated Ringer's (Lactated Ringers 1000 Ml Bag*) 1,000 mls @ 30 mls/hr IV .KVO JENN Multivitamins ( Vitamin Tab*) 1 tab PO QAM JENN Tamsulosin HCl (Flomax Cap*) 0.4 mg PO QPM [facility] Vital Signs - 8 hr 08/19/18 08/19/18 07:48 13:22 Temperature 98.1 F Pulse Rate 73 Respiratory 18 18 Rate Blood Pressure 112/58 (mmHg) O2 Sat by Pulse 97 Oximetry Oxygen Devices in Use Now: None Appearance: Elderly male sitting in bed in NAD Eyes: No Scleral Icterus Ears/Nose/Mouth/Throat: Mucous Membranes Moist Neck: NL Appearance and Movements; NL JVP, Trachea Midline Respiratory: Symmetrical Chest Expansion and Respiratory Effort, Clear to Auscultation Cardiovascular: NL Sounds; No Murmurs; No JVD, RRR Abdominal: NL Sounds; No Tenderness; No Distention Extremities: No Edema Skin: No Rash or Ulcers Neurological: Alert and Oriented x 3 Lines/Tubes/Other Access: Clean, Dry and Intact Manzanares, Clean, Dry and Intact Peripheral IV Nutrition: Taking PO's Result Diagrams: 08/19/18 04:41 08/18/18 14:14 Assess/Plan/Problems-Billing Assessment: Mr. Nieves is an 83 yo M with PMH of bladder tumor s/p resection on 07/20/18, BPH s/ p TURP, HTN, and hep C; who presented with hematuria because of the concern for continued bleeding. Hospital Medicine was consulted because of the concern for bleeding diathesis. - Patient Problems (1) Hematuria Code(s): R31.9 - HEMATURIA, UNSPECIFIED Comment: - Gross hematuria for 3 days postop after resection necessitating cauterization on 07/23/18; recurrent hematuria requiring a cystoscopy on 08/08/18 and was noted to have minimal bleeding from previous surgical site, though bleeding was controlled at that time; now with recurrent gross hematuria - Worsening anemia since July - No evidence to support hepatic etiology as LFTs and INR are normal; may benefit from outpatient workup with Hematology if bleeding diathesis remains a concern (2) Bladder tumor Code(s): D49.4 - NEOPLASM OF UNSPECIFIED BEHAVIOR OF BLADDER Comment: - S/p resection on 07/20/[address] Galdamez - Pathology showing neoplasm with low malignant potential - Defer management to Urology (3) Hepatitis C Comment: - Attempted interferon therapy in the past, but was not able to tolerate - LFTs and INR within normal limits - Would not recommend any further vitamin K - Defer further management to PCP (4) Hypertension Code(s): I10 - ESSENTIAL (PRIMARY) HYPERTENSION Comment: - Normotensive, SBP 110-120s - Recommend resuming amlodipine at discharge but will continue to hold for now (5) BPH (benign prostatic hyperplasia) Code(s): N40.0 - BENIGN PROSTATIC HYPERPLASIA WITHOUT LOWER URINRY TRACT SYMP Comment: - S/p TURP 07/20/18 - Continue tamsulosin, finasteride (6) DVT prophylaxis Comment: - SCDs only - Pharmacological methods contraindicated (7) Full code status Code(s): Z78.9 - OTHER SPECIFIED HEALTH STATUS Comment: Status and Disposition: Disposition per Urology. Thank you for this consultation. We will sign off at this time, but please do not hesitate to contact us if you have any further questions or concerns. Attending: Dae Gaitan
[2018-08-19] MEDS: Tamsulosin CAP* 0.4 MG PO SCH (18:01)
[2018-08-19] MEDS: Finasteride TAB* 5 MG PO SCH (18:01)
[2018-08-19] MEDS: Lactated Ringers 1000 ML Bag* 1,000 ML IV SCH (18:01)
[2018-08-20 08:12] VITALS: BP 126/82
[2018-08-20] MEDS: Prenatal Vitamin TAB PO SCH (09:23)
--- NOTE | 2018-08-20 16:07 | DS ---
DISCHARGE SUMMARY: DATE OF ADMISSION: 08/18/18 DATE OF DISCHARGE: 08/20/18 FINAL DIAGNOSES: 1. Recurrent gross hematuria. 2. History of high grade, noninvasive, transitional cell carcinoma of the urinary bladder. 3. Left hydroureteronephrosis. 4. Hepatitis C. 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 At that time, his CT urogram showed normal upper tracts. He underwent a transurethral resection of the tumor and the pathology showed high grade transitional cell carcinoma with no invasion into the bladder muscle. The patient received a 6-weeks' course of intravesical BCG. Follow-up cystoscopy showed BCG reaction. He could not tolerate the maintenance BCG treatments because of irritative bladder symptoms. He was followed with periodic cystoscopies and the last one done in early July 2018 showed suspicious lesions occupying the left base of the bladder and the left trigone. He was admitted on 07/20/18 and underwent transurethral resection of the left base of the bladder and the left trigone with insertion of a left ureteral stent. The pathology on the resected tissue showed low grade non-invasive transitional cell carcinoma. The patient was admitted 2 days after the TUR with gross hematuria. He underwent cystoscopy and fulguration of the TUR site. He did fine until where he had recurrence of the gross hematuria requiring another OR visit with cystoscopy and fulguration. At that time, the left ureteral stent was removed. The patient was kept on catheter drainage, and his urine remained clear until 1 days prior to this admission when he developed recurrent gross hematuria. I irrigated his catheter in the office, but he continued to have light hematuria. He was admitted to the hospital for management. PAST MEDICAL HISTORY AND SYSTEM REVIEW: The patient was diagnosed with active hepatitis C in 2014 diagnosed when he was having a cholecystectomy and liver biopsy. He was started on interferon but he could not tolerate it and it was discontinued. He has not been symptomatic from his liver. The patient otherwise is in excellent health. MEDICATIONS: His medications are tamsulosin 0.4 mg daily and finasteride 5 mg daily for prostate enlargement and bladder outlet obstruction. He is mildly hypertensive, is maintained on amlodipine 5 mg daily. ALLERGIES: He denies any allergies to medications. SOCIAL HISTORY: He is a nonsmoker. COURSE IN HOSPITAL: The patient was admitted and had a 3 way Manzanares catheter placed and was put on continuous bladder irrigation. His urine became clear in 24 hours and the CBI was discontinued. He was observed for another 24 hours and his urine remained clear on no irrigation. A hospitalist consultation was obtained because of the history of hepatitis C. His lab work showed hemoglobin of 9.8 and a hematocrit of 29 which is stable for him. Coagulation studies were normal with an INR of 1 and a PTT of 35. Chemistry studies showed sodium of 129, creatinine of 0.7 and his liver function tests were within normal limits with a normal alkaline phosphatase, minimally elevated AST at 44, but normal ALT. Serology showed a hepatitis C highly reactive antibody and a hepatitis C antibody index above 11. Plan: the patient is being discharged home in good condition and with the Manzanares catheter, draining clear urine. He is to continue on all his medications as before. I discussed the findings of the hepatitis C with Dr. Cartwright from Gastroenterology and his office will be calling the patient for a GI consultation and treatment. I plan to see the patient back in my office later on this week and plan to take his Manzanares catheter out either the end of this week or early next week if his urine remains clear. [id number]/CPS #: [id number] JASMEET
[2018-08-22 17:14] LABS: Hepatitis C Genotype 1b (Undetected)
== END 2018-08-20 12:08 | disposition home or self-care (01) ==
LOC: INTOOBSV 12:21 → SSU 12:21
PROVIDERS: ADMIT Urology; ATTEND Urology
DX: R31.9 Hematuria, unspecified (principal); D49.4 Neoplasm of unspecified behavior of bladder; N40.0 Benign prostatic hyperplasia without lower urinary tract symptoms; Z85.51 Personal history of malignant neoplasm of bladder; N13.30 Unspecified hydronephrosis; B19.20 Unspecified viral hepatitis C without hepatic coma; Z96.0 Presence of urogenital implants; Z90.49 Acquired absence of other specified parts of digestive tract
CPT/HCPCS: 36415; 74178; 76377; 80053; 80074; 85025; 85610; 85730; 87522; 87902; 96365; A9270-GY; G0378; Q9967

== ENCOUNTER 2018-11-02 17:01 | Emergency (ER) | payer BC, OTHER ==
[2018-11-02] MEDS ORDERED: Morphine 4 MG/ML VIAL (1 ml) 4 MG/ML VIAL IV ONE ×3 (17:42→23:13)
[2018-11-02] MEDS ORDERED: Ondansetron INJ* 2 MG/ML VIAL IV ONE (17:42)
--- NOTE | 2018-11-02 17:56 | ED ---
Neurological HPI - HPI Summary HPI Summary: An 83 y/o male with a history of bladder cancer who p/w with a chief complaint of LE weakness. Patient went to NSGY office today for severe lower back pain and was sent to ED over concern for cord compression. Patient thinks his symptoms began several weeks ago when he was in PT OT and it has progressively gotten worse. Now having 10/10 shooting sharp pain that begins in his lower R back and radiates down his leg. He notes that his left leg is more weak than his right. He also has had excruciating back pain that would shoot down his legs whenever he would stand up straight, and would be alleviated when he would bend over. He thinks he has lost sensation on the soles of his feet. He has a history of spinal anesthesia on August 08 for a urologic procedure. He denies any Hx of abscess or spinal stenosis. No fevers or chills. The patient was seeing Dr. Galdamez, urologist, who referred the patient to Dr. [place] ([facility] [place] for back pain. - History of Current Complaint Chief Complaint: EDWeakness Stated Complaint: LEG PAIN PER EMS Time Seen by Provider: 11/02/18 17:42 Hx Obtained From: Patient, Family/Casing Tester, EMS Onset/Duration: Gradual Onset, Started weeks ago, Still Present Timing: Constant Onset Severity: Moderate Current Severity: Moderate Pain Intensity: 5 Pain Scale Used: 0-10 Numeric Character: Weak Aggravating: Position Change/Supine to Erect - when he changes from bending over to standing straight he has worsened pain Alleviating: Position Change - bending over Associated Signs and Symptoms: Positive: Weakness - Additional Pertinent History Primary Care Physician: [id number] - Allergy/Home Medications Allergies/Adverse Reactions: Allergies Allergy/AdvReac Type Severity Reaction Status Date / Time SEASONAL HAYFEVER Allergy Intermediate ITCHY Uncoded 08/08/18 09:15 WATERY EYES PMH/Surg Hx/FS Hx/Imm Hx Endocrine/Hematology History: Denies: Hx Diabetes, Hx Anemia Cardiovascular History: Reports: Hx Hypertension Denies: Hx Aneurysm, Hx Angina, Other Cardiovascular Problems/Disorders Respiratory History: Denies: Other Respiratory Problems/Disorders GI History: Reports: Hx Gall Bladder Disease - ~2013 gall bladder surgery, Hx Ulcer - 20 yrs ago Denies: Other GI Disorders History: Reports: Hx Benign Prostatic Hyperplasia, Other Problems/ Disorders - ENLARGE PROSTATE, hematuria Sensory History: Reports: Hx Contacts or Glasses Denies: Hx Hearing Aid Opthamlomology History: Reports: Hx Contacts or Glasses Neurological History: Denies: Hx Headaches Psychiatric History: Denies: Hx Anxiety, Hx Depression - Cancer History Hx Chemotherapy: No - Surgical History Surgery Procedure, Year, and Place: 1955 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 1989 HEMORRHOIDECTOMY, [facility] [place]. 05/2014-. GALLBLADDER REMOVED- [facility] [place]. Right inguinal hernia repair 09/2017, bladder, [facility] [place]. Bladder resection 07/20/2018. bladder surgery 07/22/18 Hx Anesthesia Reactions: No - Immunization History Immunizations Up to Date: Yes Infectious Disease History: No Infectious Disease History: Reports: Hx Hepatitis - HX OF HEPATITIS C, Hx Tuberculosis - "60 years ago, maybe. i came from [place] over 55 years ago" Denies: Hx of Known/Suspected MRSA, Traveled Outside the [place] in Last 30 Days - Family History Known Family History: Positive: Other - Negative anesthesia reaction - Social History Alcohol Use: Occasionally Alcohol Amount: 1 per week Hx Substance Use: No Substance Use Type: Reports: None Hx Tobacco Use: Yes Smoking Status (MU): Never Smoked Tobacco Type: Cigarettes Amount Used/How Often: as a teen only Have You Smoked in the Last Year: No Review of Systems Positive: Fever - 100.0 Positive: Myalgia - back pain Positive: Weakness, Numbness - of lower extremities, not back. Negative: Paresthesia All Other Systems Reviewed And Are Negative: Yes Physical Exam - Summary Physical Exam Summary: Constitutional: Well-developed, Well-nourished, Alert. (-) Distressed Skin: Warm, Dry HENT: Normocephalic; Atraumatic Eyes: Conjunctiva normal Neck: Musculoskeletal ROM normal neck. (-) JVD, (-) Nuchal rigidity Cardio: Rhythm regular, rate normal, Heart sounds normal; Intact distal pulses; Radial pulses are 2+ and symmetric. (-) Murmur Pulmonary/Chest wall: Effort normal. (-) Respiratory distress, (-) Wheezes, (-) Rales Abd: Soft. (-) Tenderness, (-) Distension, (-) Guarding, (-) Rebound Musculoskeletal: (-) Edema, right L3, L4 and L5 paraspinal tenderness. Lymph: (-) Cervical adenopathy Neuro: Alert, PERRL, Oriented x3, Strength normal, Cranial nerves II-XII are grossly intact. Weakness of R foot > L with dorsiflexion. Numbness of the plantar surface of bilateral feet and calves. Decreased sensation in the L5 - S4 distributions. He had no saddle anesthesia. Psych: Mood and affect Normal Triage Information Reviewed: Yes Vital Signs On Initial Exam: Initial Vitals Temp Pulse Resp BP Pulse Ox 100.0 F 66 16 216/110 98 11/02/18 17:04 11/02/18 17:04 11/02/18 17:04 11/02/18 17:04 11/02/18 17:04 Vital Signs Reviewed: Yes Diagnostics - Vital Signs Vital Signs Temp Pulse Resp BP Pulse Ox 11/02/18 17:15 66 17 202/103 99 11/02/18 17:04 100.0 F 66 16 216/110 98 - Laboratory Result Diagrams: 11/02/18 18:34 11/02/18 18:34 Lab Statement: Any lab studies that have been ordered have been reviewed, and results considered in the medical decision making process. - CT Lumbar spine MRI CT Interpretation Completed By: Radiologist Summary of CT Findings: 1. Edema is identified within the L5-S1 disc, as well as the bone marrow of the. L5 and S1 vertebral bodies. There is enhancement of the bone marrow at L5 and. S1. These findings are concerning for discitis/ osteomyelitis. 2. Epidural/dural enhancement is identified within the lower lumbar and upper. sacral spine, most significant at the L5 vertebral level. Differential. considerations include infection and malignancy. 3. An epdiural collection of fluid is identified within the anterior epidural. region and dorsal to the S1 vertebral body. This measures 2.2 x 1.3 x 1.7 cm. This is concerning for epidural abscess. 4. Paravertebral swelling is identified involving the lower lumbar and upper. sacral spine. Multiple loculated fluid collections are identified within these. areas of swelling, concerning for abscesses. 5. There is a probable sacral meningeal cyst dorsal to the S3 vertebral body. measuring 1.5 cm in diameter. An infectious etiology cannot be excluded. 6. There is a new mild compression deformity/fracture of the L4 vertebral body. Acute marrow edema is identified with enhancement. A pathological fracture. cannot be excluded. 7. Mild anterior wedging is identified of the L2 vertebral body without acute. marrow edema, consistent with a mild chronic compression deformity. 8. Degenerative changes are noted diffusely within the lumbar spine. Varying. degrees of thecal sac narrowing and neural foraminal narrowing are identified. within the lumbar spine, as detailed above. 9. Additional findings described above. ED physician has reviewed this imaging report. Re-Evaluation - Re-Evaluation First Eval Re-Evaluation Time: 18:42 Change: Unchanged Comment: Post void residual bladder scan showed 330ccs Second Eval Re-Evaluation Time: 20:20 Comment: Patient reports pain is better. Radiology concerned for epidural abscess, plan for transfer to [facility] for neurosurgery and infectious disease consult. Blood cultures ordered, vancomycin ordered Course/Dx - Diagnoses Provider Diagnoses: Spinal abscess Discharge - Sign-Out/Discharge Documenting (check all that apply): Patient Departure - transfer, Sign-Out Patient - signed out to Dr. Newell pending acceptance to [facility] Signing out patient TO: Jordon Newell Patient Received Moderate/Deep Sedation with Procedure: No - Discharge Plan Condition: Fair Disposition: TRANS HIGHER LVL OF CARE FAC Referrals: No Primary Care Phys,NOPCP [Primary Care Provider] - - Billing Disposition and Condition Condition: FAIR Disposition: Trans Higher Lvl of Care Fac - Attestation Statements Document Initiated by Scribe: Yes Documenting Scribe: Alfonso Francisco Provider For Whom Claude is Documenting (Include Credential): Lora Coffman MD Scribe Attestation: I, Alfonso Francisco, scribed for Lora Coffman MD on 11/02/18 at 2250. Scribe Documentation Reviewed: Yes Provider Attestation: The documentation as recorded by the Alfonso andrade accurately reflects the service I personally performed and the decisions made by , Lora Coffman MD Status of Scribe Document: Viewed
[2018-11-02 18:46] LABS: ABS Lymphocytes 1.3 10^3/ul (1.0-4.8); ABS Monocytes 0.9 10^3/ul (0-0.8); ABS Neutrophils 6.4 10^3/ul (1.5-7.7); Eosinophil % 0.1 %; Hematocrit 37 % (42-52); Hemoglobin 12.9 g/dL (14.0-18.0); Lymphocyte % 15.3 %; Mean Corpuscular HGB Conc 34 g/dL (31-36); Mean Corpuscular Hemoglobin 31 pg (27-31); Mean Corpuscular Volume 89 fL (80-94); Mean Platelet Volume 7.1 fL (7.4-10.4); Platelet Count 196 10^3/uL (150-450); Red Blood Count 4.19 10^6 /uL (4.18-5.48); Red Cell Distribution Width 13 % (10-15); White Blood Count 8.6 10^3/uL (3.5-10.8)
[2018-11-02 19:02] LABS: Albumin/Globulin Ratio 0.9 (1-3); BUN/Creatinine Ratio 26.5 (8-20); C Reactive Protein 17.58 mg/L (<8.01); Calcium 9.2 mg/dL (8.6-10.3); EGFR African American 134.4 (>60); EGFR Non-African American 111.1 (>60); Globulin 4.3 g/dL (2-4); Total Bilirubin 0.6 mg/dL (0.2-1.0); Total Protein 8.3 g/dL (6.4-8.9)
[2018-11-02 19:05] LABS: INR 1.04 (0.82-1.09)
[2018-11-02] MEDS ORDERED: Gadoteridol* (CONTRAST) 279.3 MG/ML 10 ML IV ONE (20:12)
[2018-11-02] MEDS ORDERED: Vancomycin(*) 1,500 MG in NS 0.9% 250 ML* 250 ML IVPB ONE (22:12)
[2018-11-02] MEDS ORDERED: Vancomycin(*) 1,000 MG in NS 0.9% 250 ML* 250 ML IVPB ONE (23:01)
--- NOTE | 2018-11-02 23:02 | ED ---
Progress - Progress Note Progress Note: This patient is a sign-out from Dr. Lora Coffman to Dr. Jordon Newell on 11/02/18 at 2200 at shift change pending transfer arrangements. Patient has spinal abscess and needs to be transferred. Course/Dx - Course Course Of Treatment: This patient is a sign-out from Dr. Lora Coffman to Dr. Jordon Newell on 11/02/18 at 2200 at shift change pending transfer arrangements. Patient has spinal abscess and needs to be transferred. Discussed patient case with Dr. Kirby, neurosurgeon at [facility], who stated he will contact the back hoe operator to admit the patient since the patient will most likely not receive surgery soon. At 2327 discussed patient case with ED physician at [facility] who accepted the patient for transfer to ED at [facility]. Patient will be transferred to [facility] ED with dx of spinal abscess. Patient understands and agrees with this plan. - Diagnoses Provider Diagnoses: Spinal abscess - Provider Notifications Discussed Care Of Patient With: Pedro Kirby Time Discussed With Above Provider: 23:09 Instructed by Provider To: Other - Discussed patient case with Dr. Kirby, neurosurgeon at [facility], who stated he will contact the back hoe operator to admit the patient since the patient will most likely not receive surgery soon. At 2327 discussed patient case with ED physician at [facility] who accepted the patient for transfer to ED at [facility]. Discharge - Sign-Out/Discharge Documenting (check all that apply): Patient Departure - Transfer, Receiving Sign -Out Receiving patient FROM: Lora Coffman Patient Received Moderate/Deep Sedation with Procedure: No - Discharge Plan Condition: Fair Disposition: TRANS HIGHER LVL OF CARE FAC Referrals: No Primary Care Phys,NOPCP [Primary Care Provider] - - Billing Disposition and Condition Condition: FAIR Disposition: Trans Higher Lvl of Care Fac - Attestation Statements Document Initiated by Scribe: Yes Documenting Scribe: Christiano Mathews Provider For Whom Claude is Documenting (Include Credential): Jordon Andrade Attestation: Christiano Mc, scribed for Jordon Newell on 11/03/18 at 1932. Scribe Documentation Reviewed: Yes Provider Attestation: The documentation as recorded by the Christiano andrade accurately reflects the service I personally performed and the decisions made by Jordon romero Status of Scribe Document: Viewed
[2018-11-02] MEDS ORDERED: NS 0.9% 250 ML* 250 ML ONE (23:22)
[2018-11-03 02:48] VITALS: BP 146/80
== END 2018-11-02 23:56 | disposition short-term general hospital (02) ==
LOC: ED 17:01
DX: A18.01 Tuberculosis of spine (principal); I10 Essential (primary) hypertension; Z87.891 Personal history of nicotine dependence
CPT/HCPCS: 36415; 72158; 80053; 85025; 85610; 86140; 87040; 96365; 96366; 96375; 96376; 99285; A9579; J2270; J2405; J3370